=== PATIENT | female | born 1950 | race Caucasian/White ===

== ENCOUNTER → 2017-10-15 | Outpatient (CLI) | payer MEDICARE ==
--- NOTE | 2017-10-18 14:07 | MM ---
Reason for exam: screening (asymptomatic). Last mammogram was performed 1 year and 9 months ago. History: Patient is postmenopausal. Took estrogen for 3 years 7 months. Took progesterone for 3 years 7 months. Physical Findings: A clinical breast exam by your physician is recommended on an annual basis and results should be correlated with mammographic findings. MG 3D Screening Mammo W/Cad Bilateral CC and MLO view(s) were taken. Prior study comparison: January 29, 2016, bilateral MG screening mammo w CAD. December 27, 2014, bilateral MG diagnostic mammo w CAD TONEY. The breast tissue is heterogeneously dense. This may lower the sensitivity of mammography. No significant changes when compared with prior studies. ASSESSMENT: Benign, BI-RAD 2 RECOMMENDATION: Routine screening mammogram of both breasts in 1 year.
== END | disposition home or self-care (01) ==
LOC: RADMAMWWP 09:47
PROVIDERS: ATTEND Family Medicine
DX: Z12.31 Encounter for screening mammogram for malignant neoplasm of breast (principal)
CPT/HCPCS: 77063; 77067

== ENCOUNTER → 2019-06-14 | Outpatient (CLI) | payer MEDICARE ==
--- NOTE | 2019-06-14 15:13 | BD ---
EXAMINATION TYPE: Axial Bone Density DATE OF EXAM: 06/14/2019 COMPARISON: 01/29/2016 CLINICAL HISTORY: M 86.8 Height: 60 inches Weight: 178 FRAX RISK QUESTIONS: Alcohol (3 or more units per day): no Family History (Parent hip fracture): no Glucocorticoids (More than 3mos): no (Ex: prednisone, prednisolone, methylprednisolone, dexamethasone, and hydrocortisone). History of Fracture in Adulthood: no Secondary Osteoporosis: 1. Type 1 Diabetes: no 2. Hyperthyroidism: no 3. Menopause before 45: no 4. Malnutrition: no 5. Chronic liver disease: no Rheumatoid Arthritis: no Current Tobacco Use: yes RISK FACTORS HISTORY OF: Family History of Osteoporosis: yes, grandmother Active: yes Diet low in dairy products/other sources of calcium: no Postmenopausal woman: yes Take estrogen and/or progesterone medications: not now How long: estrogen & progesterone about 3 1/2 years Lost more than 2 inches in height since high school: no Frequent falls: no Poor Health: no Hyperparathyroidism: no Adrenal Insufficiency: no MEDICATIONS: Prednisone or other steroids: no Thyroid Medications: NO Osteoporosis Medications: no Additional Medications: Simvastatin, Metroprolol , allergy meds, & med for migraines, Pro-Air as need ed Additional History: IBS EXAM MEASUREMENTS: Bone mineral densitometry was performed using the Rackwise System. Bone mineral density as measured about the Lumbar spine is: ----- L1-L4(G/cm2): 1.038 T Score Values are as follows: ----- L2: -1.7 ----- L3: -1.3 ----- L4: -0.3 ----- L1-L4: -1.2 Bone mineral density has: Decreased -1.1% since study of: 01/29/2016 Bone mineral density about the R hip (g/cm2): 0.929 Bone mineral density about the L hip (g/cm2): 0.857 T Score values are as follows: -----R Neck: -0.8 -----L Neck: -1.3 -----R Total: 0.0 -----L Total: -0.3 Bone mineral density has: Increased 0.2% since study of: 01/29/2016 IMPRESSION: Osteopenia (T Score between -2.5 and -1). There is slightly increased risk of fracture and the patient may be considered for treatment. Re-Screen 2-5 years. NOTE: T-SCORE=SD OF THE YOUNG ADULT MEAN.
--- NOTE | 2019-06-15 14:12 | MM ---
Reason for exam: screening (asymptomatic). Last mammogram was performed 1 year and 8 months ago. History: Patient is postmenopausal. Took estrogen for 3 years 7 months. Took progesterone for 3 years 7 months. Physical Findings: A clinical breast exam by your physician is recommended on an annual basis and results should be correlated with mammographic findings. MG 3D Screening Mammo W/Cad Bilateral CC and MLO view(s) were taken. Prior study comparison: October 15, 2017, bilateral MG 3d screening mammo w/cad. January 29, 2016, bilateral MG screening mammo w CAD. There are scattered fibroglandular densities. No significant changes when compared with prior studies. ASSESSMENT: Benign, BI-RAD 2 RECOMMENDATION: Routine screening mammogram of both breasts in 1 year.
== END | disposition home or self-care (01) ==
LOC: RADMAMWWP 12:44
PROVIDERS: ATTEND Family Medicine
DX: Z12.31 Encounter for screening mammogram for malignant neoplasm of breast (principal); M85.80 Other specified disorders of bone density and structure, unspecified site
CPT/HCPCS: 77063; 77067; 77080

== ENCOUNTER → 2019-08-25 | Day surgery (SDC) | payer MEDICARE ==
[2019-08-24 12:04] VITALS: BMI 35.9
[~2019-08-25] MED LIST: ALBUTEROL NEB (CONC) 2.5 MG/0.5 ML INHALATION ONE; ALBUTEROL NEBULIZED 2.5 MG/3 ML INHALATION ONE; DEXAMETHASONE SOD PHOS (MDV) 100 MG/10 ML VIAL IVP ONE; GLYCOPYRROLATE 0.2 MG/ML 2 ML VIAL ONE; LACTATED RINGERS 1,000 ML IV ONE; LIDOCAINE 1% INJ 10MG/ML (20 ML MDV) ONE; LIDOCAINE 2% (PF) 20 MG/ML 5 ML VIAL INHALATION ONE; LIDOCAINE VISCOUS 300 MG/15 ML CUP MUCOUS MEM ONE; MIDAZOLAM 2 MG/2 ML VIAL IVP ONE; NEOSTIGMINE 1 MG/ML 10 ML VIAL ONE; ONDANSETRON 4 MG/2 ML VIAL IVP ONE; PROPOFOL 10 MG/ML 20 ML VIAL IV ONE; ROCURONIUM BROMIDE 10 MG/ML 5 ML VIAL IV ONE; SODIUM CHLORIDE 0.9% 1,000 ML IV SCH; SUCCINYLCHOLINE CHLORIDE 100 MG/5 ML SYR IV ONE; ePHEDrine SULFATE/0.9% NACL/PF 50 MG/5 ML SYRINGE IV ONE
[2019-08-25 11:16] VITALS: TEMP 97.7
--- NOTE | 2019-08-25 11:30 | PCN ---
PROCEDURE NOTE PROCEDURE: Bronchoscopy, endobronchial biopsies of endobronchial tumor in the right upper lobe, brushings of the right upper lobe endobronchial tumor, washings of the right upper lobe endobronchial tumor requiring needle aspiration and core biopsy of transcarinal lymph nodes. 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 ANESTHESIA USED: Patient was placed under general anesthesia by STEFANIE. PROCEDURE DESCRIPTION: Patient was prepared according to the bronchoscopy protocol. The patient was intubated by STEFANIE, and placed on mechanical ventilation. We monitored her O2 saturation continuously. Blood pressure was intermittently monitored. Cardiac rhythm was continuously monitored. After adequate anesthesia, the bronchoscope was inserted through the endotracheal tube down to the area of the carlos alberto. The carlos alberto was noted to be prominent and extremely generous. Then as we entered the right upper lobe there was evidence of complete endobronchial obstruction of the anterior segment of the right upper lobe and there was extrinsic compression from below with almost near complete obstruction of the apical and posterior segments of the right upper lobe. The rest of the examination was basically unremarkable. I was able to visualize the right middle lobe and right lower lobe. On the left side, there was no evidence of any significant findings. Then multiple endobronchial biopsies were done of the endobronchial tumor involving the right upper lobe/anterior segment. Multiple biopsies were done. Then, washings and brushings were also done from the same site. Then multiple trans carinal aspirations done at least 2 of them were done of the right anterior carinal and right paratracheal abnormality. Core biopsies were also done from the same site. Procedure was well tolerated. All the specimens were then sent for different diagnostic studies. There was no evidence of any immediate complications. The patient will be transferred to recovery right after this procedure. MMODL / IJN: [id number] /
[2019-08-25 11:38] VITALS: RESP 18
[2019-08-25 12:03] VITALS: BP 148/78; PULSE 89
[2019-08-25 15:26] LABS: Appearance,BF Bloody
[2019-08-25 15:27] LABS: Nucleated Cells, Body Fluid 0 /uL; RBC, Body Fluid 296750 /uL
--- NOTE | 2019-09-06 10:21 | CDI ---
Date: 09.06.19 CDS/Artillery Maintenance Supervisor Name: Radha Rivera Phone: If any questions, call Darlene Griffin Supervisor Power Reactor at [phone] Patient Name: An Julian Admit Date: 08.25.19 Discharge Date: 08.25.19 ATTENTION: The [facility] Coding Staff appreciate your assistance in clarifying documentation. Please respond to the clarification below the line at the bottom and electronically sign. The [facility] Coding staff will review the response and follow-up if needed. Please note: Queries are made part of the Legal Health Record. If you have any questions, please contact the Supervisor Power Reactor. Dear Dr. Benson You state at the beginning under procedure section that you performed core biopsy of transcarinal lymph notes, but the lymph nodes are not mentioned at all in the body of the report or on the path report. Both reports only mention the carnia and the lobes. Were the lymph nodes biopsied? Thank you for your kind consideration. MTDD
--- NOTE | 2019-09-14 14:20 | CGM ---
Date: 09.06.19 CDS/Tax Map Technician Name: Radha Rivera Phone: If any questions, call Darlene Griffin Advertisement Compositor at [phone] Patient Name: An Julian Admit Date: 08.25.19 Discharge Date: 08.25.19 ATTENTION: The [facility] Coding Staff appreciate your assistance in clarifying documentation. Please respond to the clarification below the line at the bottom and electronically sign. The [facility] Coding staff will review the response and follow-up if needed. Please note: Queries are made part of the Legal Health Record. If you have any questions, please contact the Advertisement Compositor. Dear Dr. Benson You state at the beginning under procedure that you performed core biopsy of transcarinal lymph notes, but the lymph nodes are not mentioned at all in the body of the report or on the path report. Both reports only mention the carnia and the lobes. Were the lymph nodes biopsied? Thank you for your kind consideration. MTDD
== END ==
LOC: ORWHC2ENDO 08:15
PROVIDERS: ATTEND Internal Medicine
DX: C34.11 Malignant neoplasm of upper lobe, right bronchus or lung (principal); C34.01 Malignant neoplasm of right main bronchus; I87.1 Compression of vein; J90 Pleural effusion, not elsewhere classified; J44.9 Chronic obstructive pulmonary disease, unspecified; G43.909 Migraine, unspecified, not intractable, without status migrainosus; I10 Essential (primary) hypertension; E78.5 Hyperlipidemia, unspecified; F17.210 Nicotine dependence, cigarettes, uncomplicated; F32.9 Major depressive disorder, single episode, unspecified; E66.9 Obesity, unspecified; Z68.35 Body mass index [BMI] 35.0-35.9, adult; Z88.5 Allergy status to narcotic agent; Z79.51 Long term (current) use of inhaled steroids; Z79.899 Other long term (current) drug therapy; Z91.048 Other nonmedicinal substance allergy status; Z98.890 Other specified postprocedural states; Z90.89 Acquired absence of other organs; Z97.2 Presence of dental prosthetic device (complete) (partial); Z80.51 Family history of malignant neoplasm of kidney; Z82.49 Family history of ischemic heart disease and other diseases of the circulatory system; Z82.5 Family history of asthma and other chronic lower respiratory diseases
CPT/HCPCS: 94640; 88104; 88108; 88305; 88173; 89050; 88342; 88341; 87070; 87205; 31625; 31623; J2250; J2710; J2405; J2001 ×2; J1100; J0330; J2704; 31624; 31628; 31629

== ENCOUNTER → 2019-08-30 | Outpatient (CLI) | payer MEDICARE ==
--- NOTE | 2019-08-30 11:51 | MR ---
EXAMINATION TYPE: MR brain wo/w con DATE OF EXAM: 08/30/2019 COMPARISON: NONE HISTORY: Small cell lung ca, eval for mets TECHNIQUE: Multiplanar, multisequence images of the brain and brainstem is performed without and with IV contras t, utilizing 7.5 mL intravenous Gadavist . FINDINGS: Postcontrast images demonstrate an extra-axial enhancing T2 hypointense and T1 isointense dural based mass. 1.3 x 1.1 x 1.0 cm in transverse by anterior posterior by craniocaudal dimension with a dural tail in the right occipital region. This is marked on postcontrast axial fat sat image 50 and sagitta l image 95. The surrounding sulci are compressed however there is no adjacent vasogenic edema within the brain. Centrally there is absence of enhancement. This does not appear as a large arachnoid granu lation as it is not T2 hyperintense. Diffusion weighted images demonstrate no evidence of a recent infarct or other diffusion abnormality. There is no suspicious extra-axial fluid collection. There are numerous foci of T2/FLAIR hyperinten sity scattered within the periventricular and subcortical white matter with one of the largest and mo st confluent in the periatrial white matter on the left on FLAIR axial fat-sat image 19 measuring 1.1 x 0.8 cm. White matter changes also seen within the oyko. The ventricular system and cisternal spac es are normal in size and appearance. The brain volume is age appropriate. Midline structures demonstrate normal morphology. Incidentally noted partially empty sella turcica. T he craniocervical junction appears within normal limits. The dural venous sinuses appear patent. The globes are intact with prominent symmetric perineural fluid surrounding the optic nerves. Large amount of fluid is seen in the bilateral mastoid air cells and small amount of fluid in the mid dle ear cavities bilaterally. Minimal mucosal thickening of the left maxillary and ethmoid sinuses. R emaining visualized paranasal sinuses are well aerated. IMPRESSION: 1. Findings concerning for 1.3 cm dural based metastasis in the right occipital region with only very minimal mass effect on the adjacent sulci and no intracranial vasogenic edema. 2. Moderate burden nonspecific white matter change, likely on the basis of chronic microangiopathy in cluding within the yoko. Other pontine differential diagnosis is for T2 hyperintensity are less like ly given the lack of enhancement such as low-grade glioma. Attention on follow-up exams. 3. Severe bilateral otomastoiditis. 4. Moderate paranasal sinus disease. 5. Incidentally noted prominent amount of subarachnoid fluid around the optic nerves and a partially into sella turcica that can both be seen in increased intracranial pressure. Correlate with ophthalmo logic exam to exclude papilledema.
== END | disposition home or self-care (01) ==
LOC: RADMRIMAIN 09:55
PROVIDERS: ATTEND Internal Medicine Hematology & Oncology
DX: C79.31 Secondary malignant neoplasm of brain (principal); R90.89 Other abnormal findings on diagnostic imaging of central nervous system; C34.90 Malignant neoplasm of unspecified part of unspecified bronchus or lung
CPT/HCPCS: 70553; A9585

== ENCOUNTER 2019-09-07 12:43 | Emergency (ER) | payer MEDICARE ==
[2019-09-07 12:52] VITALS: TEMP 98.3
--- NOTE | 2019-09-07 13:23 | ED ---
General Adult HPI - General Chief complaint: Recheck/Abnormal Lab/Rx Stated complaint: Hypertension, CA PT Time Seen by Provider: 09/07/19 12:50 Source: patient, RN notes reviewed, old records reviewed Limitations: no limitations - History of Present Illness Initial comments: This is a 69-year-old female presents emergency Department with a past medical history significant for lung cancer and continues to smoke. Patient states she's getting chemotherapy over the last 3 days. Patient states her blood pressure has been elevated and her metoprolol was recently increased from 50-100 a day. Patient states yesterday and today her blood pressure was still very elevated and on her way home she got a little lightheaded and had a little bit of tingling in both of her hands and decided to come and be checked out. Patient currently states she has no symptoms whatsoever. Patient thinks the lightheadedness and tingling was probably more anxiety than anything else. Patient denies any chest pain or palpitations. Patient denies shortness of breath or difficulty breathing. Patient denies any recent fever chills or cough per patient denies abdominal pain patient denies nausea vomiting diarrhea. - Related Data Home Medications Medication Instructions Recorded Confirmed Acetaminophen [Tylenol] 325 - 650 mg PO Q4H PRN 08/24/19 09/07/19 Albuterol Sulfate [Proair Hfa] 2 puff INHALATION Q4HR PRN 08/24/19 09/07/19 Biotin 10,000 mcg PO DAILY 08/24/19 09/07/19 Cholecalciferol [Vitamin D3 (25 3,000 unit PO DAILY 08/24/19 09/07/19 Mcg = 1000 Iu)] Cyanocobalamin (Vitamin B-12) 5,000 mcg PO DAILY 08/24/19 09/07/19 [Vitamin B-12] Fluticasone Propionate [Flonase 2 spray EA NOSTRIL DAILY 08/24/19 09/07/19 Allergy Relief] Fluticasone/Vilanterol [Breo 1 inhalation INHALATION DAILY 08/24/19 09/07/19 Ellipta 200-25 Mcg INH] Ibuprofen [Motrin Ib] 400 mg PO Q8H PRN 08/24/19 09/07/19 Lactobacillus Acidophilus 1 each PO DAILY 08/24/19 09/07/19 [Acidophilus] Loperamide [Imodium] 2 mg PO QID PRN 08/24/19 09/07/19 Loratadine [Claritin] 10 mg PO DAILY 08/24/19 09/07/19 Metoprolol Succinate (ER) [Toprol 50 mg PO DAILY 08/24/19 09/07/19 Xl] SUMAtriptan SUCCINATE [Imitrex] 50 mg PO ONCE PRN 08/24/19 09/07/19 Simvastatin [Zocor] 20 mg PO HS 08/24/19 09/07/19 Topiramate [Topamax] 100 mg PO DAILY 08/24/19 09/07/19 Ondansetron HCl [Zofran] 1 tab PO DIRECTED PRN 09/05/19 09/07/19 Prochlorperazine [Compazine] 1 tab PO DIRECTED PRN 09/05/19 09/07/19 predniSONE 1 tab PO DIRECTED 09/05/19 09/07/19 tiZANidine [Zanaflex] 1 tab PO TID 09/05/19 09/07/19 Allergies Allergy/AdvReac Type Severity Reaction Status Date / Time meperidine [From Demerol] Allergy Severe Nausea & Verified 09/07/19 12:52 Vomiting codeine Allergy Nausea & Verified 09/07/19 12:52 Vomiting nickel Allergy Rash/Hives Verified 09/07/19 12:52 Review of Systems ROS Statement: Those systems with pertinent positive or pertinent negative responses have been documented in the HPI. ROS Other: All systems not noted in ROS Statement are negative. Past Medical History Past Medical History: COPD, Hearing Disorder / Deafness, Hyperlipidemia, Hypertension Additional Past Medical History / Comment(s): Sl RAMONA. Migraines, vertigo. RUL lung mass, Pleural Effusion, cervical lymph nodes enlarged, shortness of breath, edema face/chest/breasts. Muscle cramps BLE, fingers. History of Any Multi-Drug Resistant Organisms: None Reported Past Surgical History: Tonsillectomy Additional Past Surgical History / Comment(s): D&C. Colonoscopy. Lung Biopsy Past Anesthesia/Blood Transfusion Reactions: Family History of Problems w/ Anesthesia Additional Past Anesthesia/Blood Transfusion Reaction / Comment(s): Reaction to Demerol given with colonoscopy. Mother has problems Smoking Status: Current every day smoker Past Alcohol Use History: None Reported Past Drug Use History: None Reported - Past Family History Mother Family Medical History: Cancer, Deep Vein Thrombosis (DVT) Additional Family Medical History / Comment(s): kidney cancer General Exam - General Exam Comments Initial Comments: GENERAL: Patient is well-developed and well-nourished. Patient is nontoxic and well-hydrated and is in no acute distress. ENT: Neck is soft and supple. No significant lymphadenopathy is noted. Oropharynx is clear. Moist mucous membranes. Neck has full range of motion without eliciting any pain. EYES: The sclera were anicteric and conjunctiva were pink and moist. Extraocular movements were intact and pupils were equal round and reactive to light. Eyelids were unremarkable. PULMONARY: Unlabored respirations. Good breath sounds bilaterally. No audible rales rhonchi or wheezing was noted. CARDIOVASCULAR: There is a regular rate and rhythm without any murmurs gallops or rubs. ABDOMEN: Soft and nontender with normal bowel sounds. SKIN: Skin is clear with no lesions or rashes and otherwise unremarkable. NEUROLOGIC: Patient is alert and oriented x3. Cranial nerves II through XII are grossly intact. Motor and sensory are also intact. Normal speech, volume and content. Symmetrical smile. MUSCULOSKELETAL: Normal extremities with adequate strength and full range of motion. No lower extremity swelling or edema. No calf tenderness. LYMPHATICS: No significant lymphadenopathy is noted PSYCHIATRIC: Normal psychiatric evaluation. Limitations: no limitations Course Vital Signs 09/07/19 09/07/19 12:50 13:06 Temperature 98.3 F Pulse Rate 88 88 Respiratory 18 18 Rate Blood Pressure 148/86 141/98 O2 Sat by Pulse 95 94 L Oximetry Medical Decision Making - Medical Decision Making EKG shows sinus rhythm at 86 bpm VT interval 208 QRS is 74 QT interval 354 QTC is 423. Patient's EKG shows no ST segment elevation or depression. I will begin the room to reexamine the patient she continue to be asymptomatic. - Lab Data Result diagrams: 09/07/19 13:30 09/07/19 13:30 Lab Results 09/07/19 09/07/19 09/07/19 Range/Units 13:30 13:30 13:30 WBC 6.2 (3.8-10.6) k/uL RBC 4.47 (3.80-5.40) m/uL Hgb 13.2 (11.4-16.0) gm/dL Hct 42.0 (34.0-46.0) % MCV 94.1 (80.0-100.0) fL MCH 29.5 (25.0-35.0) pg MCHC 31.4 (31.0-37.0) g/dL RDW 13.0 (11.5-15.5) % Plt Count 186 (150-450) k/uL Neutrophils % 96 % Lymphocytes % 2 % Monocytes % 2 % Eosinophils % 1 % Basophils % 0 % Neutrophils # 6.0 (1.3-7.7) k/uL Lymphocytes # 0.1 L (1.0-4.8) k/uL Monocytes # 0.1 (0-1.0) k/uL Eosinophils # 0.0 (0-0.7) k/uL Basophils # 0.0 (0-0.2) k/uL Sodium 136 L (137-145) mmol/L Potassium 4.0 (3.5-5.1) mmol/L Chloride 105 (98-107) mmol/L Carbon Dioxide 23 (22-30) mmol/L Anion Gap 8 mmol/L BUN 17 (7-17) mg/dL Creatinine 0.57 (0.52-1.04) mg/dL Est GFR (CKD-EPI)AfAm >90 (>60 ml/min/1.73 sqM) Est GFR (CKD-EPI)NonAf >90 (>60 ml/min/1.73 sqM) Glucose 164 H (74-99) mg/dL Calcium 8.8 (8.4-10.2) mg/dL Total Bilirubin 0.5 (0.2-1.3) mg/dL AST 46 H (14-36) U/L ALT 22 (4-34) U/L Alkaline Phosphatase 64 (38-126) U/L Troponin I <0.012 (0.000-0.034) ng/mL Total Protein 6.5 (6.3-8.2) g/dL Albumin 4.0 (3.5-5.0) g/dL Disposition Clinical Impression: Hypertensive urgency Disposition: HOME SELF-CARE Condition: Good Instructions (If sedation given, give patient instructions): Chronic Hypertension (ED) Additional Instructions: Patient should monitor her blood pressure before every meal and before bed. Patient should document this and show her primary medical care doctor. Patient should contact her primary doctor either today or tomorrow and see if he would advise her to increase her blood pressure medication or take a dose at night Patient should return to emergency department if she has having any new symptoms or any worsening symptoms. Is patient prescribed a controlled substance at d/c from ED?: No Referrals: Leia Marquez MD [Primary Care Provider] - 1-2 days Time of Disposition: 14:32
[2019-09-07 13:41] LABS: Basophils % (A) 0 %; Eosinophils % (A) 1 %; HGB 13.2 gm/dL (11.4-16.0); Lymphocytes # (A) 0.1 k/uL (1.0-4.8); Lymphocytes % (A) 2 %; MCH 29.5 pg (25.0-35.0); MCHC 31.4 g/dL (31.0-37.0); MCV 94.1 fL (80.0-100.0); Mean Platelet Volume 7.4; Monocytes # (A) 0.1 k/uL (0-1.0); Monocytes % (A) 2 %; Neutrophils % (A) 96 %; Platelet Count 186 k/uL (150-450); RBC 4.47 m/uL (3.80-5.40); WBC 6.2 k/uL (3.8-10.6)
[2019-09-07 13:52] LABS: ALT 22 U/L (4-34); AST 46 U/L (14-36); African American GFR (CKD) >90 (>60 ml/min/1.73 sqM); Alkaline Phosphatase 64 U/L (38-126); Anion Gap 8 mmol/L; Blood Urea Nitrogen 17 mg/dL (7-17); Calcium 8.8 mg/dL (8.4-10.2); Carbon Dioxide 23 mmol/L (22-30); Chloride 105 mmol/L (98-107); Glucose 164 mg/dL (74-99); Non-African American GFR(CKD) >90 (>60 ml/min/1.73 sqM); Sodium 136 mmol/L (137-145); Total Bilirubin 0.5 mg/dL (0.2-1.3); Total Protein 6.5 g/dL (6.3-8.2)
[2019-09-07 14:42] VITALS: BP 142/87; PULSE 18; RESP 16
== END 2019-09-07 14:45 | disposition home or self-care (01) ==
LOC: EC 12:43
DX: I16.0 Hypertensive urgency (principal); C34.90 Malignant neoplasm of unspecified part of unspecified bronchus or lung; J44.9 Chronic obstructive pulmonary disease, unspecified; E78.5 Hyperlipidemia, unspecified; I10 Essential (primary) hypertension; F17.200 Nicotine dependence, unspecified, uncomplicated; Z79.51 Long term (current) use of inhaled steroids; Z79.899 Other long term (current) drug therapy; Z88.5 Allergy status to narcotic agent; Z88.8 Allergy status to other drugs, medicaments and biological substances
CPT/HCPCS: 99284 ×2; 36415; 93005; 80053; 84484; 85025; 96367; 96375; 96413; J1100; J9181; J2405

== ENCOUNTER → 2019-09-13 | Outpatient (CLI) | payer MEDICARE ==
[2019-09-13 11:34] LABS: Partial Thromboplastin Time 22.1 sec (22.0-30.0)
[2019-09-13 11:39] LABS: Basophils % (A) 1 %; Eosinophils % (A) 2 %; HCT 39.5 % (34.0-46.0); HGB 12.8 gm/dL (11.4-16.0); Lymphocytes # (A) 0.2 k/uL (1.0-4.8); Lymphocytes % (A) 7 %; MCH 30.3 pg (25.0-35.0); MCHC 32.4 g/dL (31.0-37.0); MCV 93.6 fL (80.0-100.0); Mean Platelet Volume 7.9; Monocytes # (A) 0.1 k/uL (0-1.0); Monocytes % (A) 4 %; Neutrophils # (A) 2.1 k/uL (1.3-7.7); Neutrophils % (A) 87 %; Platelet Count 106 k/uL (150-450); RBC 4.22 m/uL (3.80-5.40); RDW 12.9 % (11.5-15.5); WBC 2.5 k/uL (3.8-10.6)
== END | disposition home or self-care (01) ==
LOC: LABWHC1 10:15
PROVIDERS: ATTEND Radiology Radiation Oncology
DX: U07.1 COVID-19 (principal); C34.11 Malignant neoplasm of upper lobe, right bronchus or lung; C77.1 Secondary and unspecified malignant neoplasm of intrathoracic lymph nodes
CPT/HCPCS: 36415; 85025; 85610; 85730; 87635

== ENCOUNTER 2019-09-15 09:20 | Day surgery (SDC) | payer MEDICARE ==
[2019-09-15 10:26] VITALS: BP 134/88; PULSE 82; RESP 18; TEMP 97.8
--- NOTE | 2019-09-15 11:05 | US ---
Ultrasound-guided therapeutic and diagnostic thoracentesis DATE OF EXAM: 09/15/2019 CLINICAL HISTORY: Right pleural effusion Preliminary imaging demonstrated marked reduced amount of pleural fluid relative to the previous CT s can. Patient deferred paracentesis. IMPRESSION: 1. Patient deferred thoracentesis due to small amount of fluid which appear to be significantly impro andriy relative to the prior CT scan.
== END 2019-09-15 10:50 | disposition home or self-care (01) ==
LOC: RADPROMAIN 09:20
PROVIDERS: ATTEND Radiology Radiation Oncology
DX: J91.8 Pleural effusion in other conditions classified elsewhere (principal); C34.11 Malignant neoplasm of upper lobe, right bronchus or lung; C77.1 Secondary and unspecified malignant neoplasm of intrathoracic lymph nodes; Z53.8 Procedure and treatment not carried out for other reasons
CPT/HCPCS: 76604

== ENCOUNTER → 2019-10-26 | Outpatient (CLI) | payer MEDICARE ==
[2019-10-26 10:13] LABS: African American GFR (CKD) >90 (>60 ml/min/1.73 sqM); Blood Urea Nitrogen 17 mg/dL (7-17); Non-African American GFR(CKD) 88 (>60 ml/min/1.73 sqM)
--- NOTE | 2019-10-26 11:27 | CT ---
EXAMINATION TYPE: CT chest w con DATE OF EXAM: 10/26/2019 COMPARISON: 07/12/2019 HISTORY: 69-year-old female Follow up lung cancer. TECHNIQUE: Contiguous axial scanning of the chest after the administration of 100 mL of Isovue 300. Coronal/sagittal reconstructions performed. CT DLP: 334.6mGycm. Automatic exposure control utilized for a dose reduction. FINDINGS: Heart normal size with small anterior pericardial effusion measuring 5 mm thick. Ascending aorta is borderline ectatic at 3.5 cm. Descending thoracic aorta mildly ectatic at 2.8 cm. Mild atherosclerotic arch calcifications with conventional arthrosis of branching anatomy. Significant interval treatment response to the large 6.5 x 6.2 cm right peritracheal mass now with re sidual 2.3 x 1.8 cm soft tissue density. Mild residual soft tissue encasement of the right hilum, als o significantly improved. 9 mm right-sided infrahilar lymph node remains unchanged, axial image 29. Prevascular space and additional superior right mediastinal lymph nodes have resolved. Strandy atelectasis in the lower lungs. Mild diffuse bronchial wall thickening suggests bronchitis or chronic asthma. Mild upper lung centrilobular seem a period Moderate-sized right-sided fat-containing Bochdalek hernia redemonstrated. Multiple hepatic cysts redemonstrated measuring up to 4.7 cm. Many of the hypodensities are too small for accurate CT characterization but also likely represent cysts. Bones: Moderate degenerative disc disease mid thoracic spine. IMPRESSION: 1. Significant interval treatment response. The previous 6.5 cm right paratracheal mass shows only re sidual 2.3 x 1.8 cm soft tissue. There is mild residual soft tissue encasement of the right hilum, al so significantly improved. 2. A 9 mm right-sided infrahilar lymph node remains unchanged and can be reassessed at follow-up. 3. COPD with mild emphysema.
== END | disposition home or self-care (01) ==
LOC: RADCTMAIN 09:43
PROVIDERS: ATTEND Internal Medicine Hematology & Oncology
DX: J43.9 Emphysema, unspecified (principal); C34.91 Malignant neoplasm of unspecified part of right bronchus or lung; R59.0 Localized enlarged lymph nodes; Z88.5 Allergy status to narcotic agent; Z88.6 Allergy status to analgesic agent; Z91.048 Other nonmedicinal substance allergy status
CPT/HCPCS: 82565; 84520; 71260; Q9967

== ENCOUNTER → 2019-12-05 | Outpatient (CLI) | payer MEDICARE ==
--- NOTE | 2019-12-05 16:17 | MR ---
EXAMINATION TYPE: MR brain wo/w con DATE OF EXAM: 12/05/2019 COMPARISON: MRI brain 08/30/2019 HISTORY: Malignant neoplasm right upper lobe, secondary neoplasm lymph nodes TECHNIQUE: Multiplanar, multisequence images of the brain and brainstem is performed without and with IV contras t, utilizing 7.5 mL intravenous Gadavist . FINDINGS: There is a redemonstrated right occipital region extra-axial dural based mass measuring 1.3 x 1.1 x 1 .1 cm. The masses is again T1 isointense, T2 hypointense, nonrestricting, and peripherally enhancing (601:50). There is redemonstrated small dural tail. Mild mass effect on the adjacent sulci unchanged. No evidence of significant adjacent edema. Diffusion weighted images demonstrate no evidence of a recent infarct or other diffusion abnormality. There is no extra-axial fluid collection. There are redemonstrated innumerable T2 FLAIR hyperintense foci of the deep, subcortical, and periventricular white matter without enhancement. The largest foc us measures 1.2 cm (501:41), unchanged. The ventricular system and cisternal spaces are normal in siz e and appearance. The brain volume is age appropriate. Midline structures demonstrate normal morphology. Redemonstrated empty sella. The craniocervical junc tion appears within normal limits. The dural venous sinuses appear patent. There is redemonstrated fl uid within the bilateral mastoid air cells and middle ear cavities. The globes are grossly symmetric with no evidence of bulging or flattening of the optic nerve head, and decreased fluid signal around the optic nerves versus 08/30/2019 comparison. IMPRESSION: 1. Unchanged 1.3 cm dural based mass in the right occipital region, likely dural based metastasis. M ild mass effect and no associated intracranial edema. No new masses. 2. Unchanged nonenhancing, nonspecific white matter change may represent sequela of chronic microang iopathy. Attention on follow-up exams. 3. Redemonstrated bilateral otomastoiditis.
== END | disposition home or self-care (01) ==
LOC: RADMRIMAIN 10:18
PROVIDERS: ATTEND Radiology Radiation Oncology
DX: C34.11 Malignant neoplasm of upper lobe, right bronchus or lung (principal); C77.1 Secondary and unspecified malignant neoplasm of intrathoracic lymph nodes; R22.0 Localized swelling, mass and lump, head
CPT/HCPCS: 70553; A9585

== ENCOUNTER → 2020-01-31 | Outpatient (CLI) | payer MEDICARE ==
--- NOTE | 2020-02-01 10:01 | CT ---
EXAMINATION TYPE: CT chest w con DATE OF EXAM: 01/31/2020 COMPARISON: 10/26/2019 HISTORY: Lung ca, metastatic brain. CT DLP: 347.90 mGycm, Automated exposure control for dose reduction was used. CONTRAST: Performed injected with 100 mL of Isovue 300. TECHNIQUE: Axial images were obtained at 5 mm thick sections. Reconstructed images are reviewed on [employer] computer in the coronal plane. FINDINGS: Portion of the thyroid visualized is normal. There is diffuse increased lung markings at the right apex which are nonspecific. Postradiation diaz es could be considered. Infiltrate from infection could be considered. Metastatic disease is consider ed less likely given the diffuse nature but should be within the differential. There is a punctate nodule within the periphery of the lateral right apex measuring 0.3 cm. This have been present previously. There is a small infiltrate in the superior segment right lower lobe with a transverse dimension of 0 .5 cm. Series 4 image 17. Mild pneumonitis changes in the right middle lobe. There is a small right pleural effusion. A 1.1 cm transverse dimension pretracheal lymph node at the level the carlos alberto is again evident and malik ears slightly smaller than comparison. Length along the peribronchial region currently measures 2.1 c m which is diminished from the 2.3 cm previous. Small lymph nodes are present in the pretracheal and right hilar region. There is a 0.9 cm subcarinal lymph node present. The ascending aorta diameter at the level of the main pulmonary artery is 3.6 cm. The main pulmonary artery diameter at the bifurcat ion is 2.4 cm. Minimal pericardial effusion is present. Limited CT sections are obtained through the upper abdomen. There is a 2.5 cm cyst measuring 5 Hounsf ield units in the posterior right lobe liver. There is a large cyst near the ligamentum teres measuri ng 9 Hounsfield units and 4.0 cm. Additional small hypodensities are within the liver appear suggesti ve for additional cysts. A discrete mass is not identified. IMPRESSIONS: 1. Diffuse increased lung markings at the right apex. Correlate for prior radiation treatment. Infect ious etiology and infiltrative metastasis could be considered. 2. Pretracheal lymph node or mass is somewhat smaller than the comparison study of 10/26/2019. No porfirio tional enlarged mediastinal or hilar lymph nodes are evident.
== END | disposition home or self-care (01) ==
LOC: RADCTMAIN 14:51
PROVIDERS: ATTEND Internal Medicine Hematology & Oncology
DX: C34.91 Malignant neoplasm of unspecified part of right bronchus or lung (principal); C79.31 Secondary malignant neoplasm of brain; Z88.5 Allergy status to narcotic agent; Z91.048 Other nonmedicinal substance allergy status
CPT/HCPCS: 71260; Q9967

== ENCOUNTER → 2020-03-20 | Outpatient (CLI) | payer MEDICARE ==
--- NOTE | 2020-03-20 14:59 | MR ---
EXAMINATION TYPE: MR brain wo/w con DATE OF EXAM: 03/20/2020 2:34 PM COMPARISON: NONE HISTORY: F/U Cancer CONTRAST: Patient received 7.5 mL intravenous Gadavist gadolinium contrast. Multiplanar and multispin-echo imaging of the brain was performed . Pre and post contrast enhanced i mages are obtained. The ventricles, basal cisterns and sulci overlying the cerebral convexities are mildly enlarged. There is evidence of mild to moderate periventricular white matter ischemic demyelination. Remote deep white matter insults are also noted. Demyelination is difficult to exclude No acute edema is seen on diffusion weighted imaging. There is no evidence for midline shift or mass effect. Acute intracranial hemorrhage or extra-axial collection is not evident. Extra-axial mass is again noted right occipital region and appears to be slightly smaller in size wit h current measurement of 1.1 x 0.8 cm versus 1.3 x 1.1 cm previously. No additional lesions are prese nt at this time. Complete opacification of the mastoid air cells. IMPRESSION: 1.Extra-axial mass is again noted right occipital region and appears to be slightly smaller in size w ith current measurement of 1.1 x 0.8 cm versus 1.3 x 1.1 cm previously. No additional lesions are pre sent at this time. 2. Stable nonspecific white matter changes.
== END | disposition home or self-care (01) ==
LOC: RADMRIMAIN 13:07
PROVIDERS: ATTEND Radiology Radiation Oncology
DX: R90.82 White matter disease, unspecified (principal); C79.31 Secondary malignant neoplasm of brain
CPT/HCPCS: 70553; A9585

== ENCOUNTER → 2020-05-06 | Outpatient (CLI) | payer MEDICARE ==
[2020-05-06 09:12] LABS: African American GFR (CKD) >90 (>60 ml/min/1.73 sqM); Blood Urea Nitrogen 15 mg/dL (7-17); Non-African American GFR(CKD) >90 (>60 ml/min/1.73 sqM)
--- NOTE | 2020-05-06 11:36 | CT ---
EXAMINATION TYPE: CT chest w con DATE OF EXAM: 05/06/2020 COMPARISON: 01/31/2020, 10/26/2019, 07/12/2019 HISTORY: 70-year-old female C34.91, Z03.89, Lung cancer, suspect METS TECHNIQUE: Contiguous axial scanning of the chest after the administration of 100 mL of Isovue 300. Coronal/sagittal reconstructions performed. CT DLP: 268.2mGycm. Automatic exposure control utilized for a dose reduction. FINDINGS: Heart normal size with small anterior pericardial effusion measuring 5 mm thick, similar to prior. Ectatic aortic root at 3.7 cm. Mild atherosclerotic arch calcifications with conventional arch vessel branching anatomy. Stable precarinal and right hilar mild soft tissue encasement. The precarinal region, this measures u p to 9 mm thick processes 1 cm, previously. Right hilar lymph node measures 1 cm versus 1.2 cm on 01/09. Trace right pleural effusion remains. There is stable groundglass opacity in the right apex but increasing areas of patchy groundglass dens ity in the right suprahilar upper lobe and subpleural peripheral right upper lobe. Some subpleural fatty proliferation posterior medial right base is unchanged measuring 6.8 x 3.8 cm. Numerous hepatic cysts, largest measuring 4.7 cm. Mild diffuse thickening left adrenal gland is uncha nged without discrete nodularity. Bones: Moderate degenerative disc disease midthoracic spine. IMPRESSION: 1. Stable mild precarinal and right hilar soft tissue encasement corresponding to site of treated dis ease. Precarinal soft tissue thickening measures 9 mm versus 1 cm, previously. 2. Continued trace right pleural effusion and right apical groundglass density. However, there is inc reasing multifocal groundglass within the right upper lobe. Consider progressive posttreatment change or infectious/inflammatory pneumonitis. 3. Stable 5 mm thick pericardial effusion. 4. Otherwise, no convincing evidence of progression at this time.
== END | disposition home or self-care (01) ==
LOC: RADCTMAIN 08:17
PROVIDERS: ATTEND Internal Medicine Hematology & Oncology
DX: M79.89 Other specified soft tissue disorders (principal); J98.4 Other disorders of lung; I31.3 Pericardial effusion (noninflammatory); C34.91 Malignant neoplasm of unspecified part of right bronchus or lung; Z88.5 Allergy status to narcotic agent; Z91.048 Other nonmedicinal substance allergy status
CPT/HCPCS: 82565; 84520; 71260; 36415; Q9967

== ENCOUNTER → 2020-08-09 | Outpatient (CLI) | payer MEDICARE ==
--- NOTE | 2020-08-09 18:07 | CT ---
EXAMINATION TYPE: CT ChestAbdPelvis w con DATE OF EXAM: 08/09/2020 INDICATION: follow up lung cancer COMPARISON: 05/06/2020 CT DLP: 682.4 mGycm CONTRAST: Performed with Oral Contrast and with IV Contrast, patient injected with 100 mL of Isovue 300. TECHNIQUE: Axial images at 5 mm thick sections. Reconstructed images in the coronal plane. Delayed images through the kidneys. FINDINGS: CT CHEST: Portion of the thyroid visualized is normal. There is increased density and some distortion through the right apex which is stable from comparison . There is some increasing superior lung areas of pneumonitis which are nonspecific and can be related to metastasis or infectious etiologies. Example image series 4 image 21 and series 4 image 18. No enlarged mediastinal or hilar adenopathy is evident. The ascending aorta diameter at the level of the main pulmonary artery is 3.7 cm. The main pulmonary artery diameter at the bifurcation is 2.[address] ABDOMEN: Liver: Multiple scattered hypodensities are present likely on the basis of hepatic cysts. Spleen: Normal Pancreas: Normal Adrenal glands: The adrenal glands are normal. Gallbladder: Normal Kidneys: No masses are evident. No hydronephrosis is present. No cysts are present. Delayed images were obtained through the kidneys, couple of small cortical renal cysts are identified on the right kidney and delayed images. Aorta: Vascular calcification is within the aorta. Inferior vena cava: Normal. CT PELVIS: Multiple scattered diverticuli within the sigmoid colon. No suspicious changes to suggest acute diver ticulitis is evident. Some small bowel loops are slightly prominent within the left upper quadrant. N o transition is evident. No mass effect is evident. Fecal debris is within the colon. There are loops of bowel which are incompletely distended or lack oral contrast limiting their evaluation. Appendix: Normal as visualized. Urinary bladder: Normal. Genitourinary structures: Uterus is unremarkable. Adnexal regions appear within normal limits. Osseous structures: No suspicious lytic or sclerotic lesions. IMPRESSIONS: 1. Diffuse distortion increased density within the right upper lobe can be compatible with patient's lung cancer. Some patchy infiltrates are increasing in size 2. Hepatic cysts
== END | disposition home or self-care (01) ==
LOC: RADCTMAIN 11:25
PROVIDERS: ATTEND Internal Medicine Hematology & Oncology
DX: C34.91 Malignant neoplasm of unspecified part of right bronchus or lung (principal); C79.31 Secondary malignant neoplasm of brain; R91.8 Other nonspecific abnormal finding of lung field; K76.89 Other specified diseases of liver; Z88.5 Allergy status to narcotic agent; Z91.048 Other nonmedicinal substance allergy status
CPT/HCPCS: 82565; 84520; 71260; 74177; Q9967

== ENCOUNTER → 2020-08-14 | Outpatient (CLI) | payer MEDICARE ==
--- NOTE | 2020-08-14 13:45 | MR ---
EXAMINATION TYPE: MR brain wo/w con DATE OF EXAM: 08/14/2020 12:13 PM COMPARISON: 03/20/2020 HISTORY: F/U cancer CONTRAST: Patient received 7 mL intravenous Gadavist gadolinium contrast. Multiplanar and multispin-echo imaging of the brain was performed . Pre and post contrast enhanced i mages are obtained. The ventricles, basal cisterns and sulci overlying the cerebral convexities are mildly enlarged. There is evidence of mild periventricular white matter ischemic demyelination. Remote deep white matter insults are also noted. New lesions are noted in the interval with dominant lesion within the infratentorial right cerebellum measuring 1.7 cm. Additional new lesions are noted with small ring-enhancing lesions within the left basal ganglia measuring 6 mm, left occipital region 4.4 mm, right centrum semioval anteriorly, 5.3 m m high left parietal occipital region, 4.8 mm high right parasagittal frontal lobe 5.4 mm. Dural base d lesion right occipital region measures 7.7 mm and has decreased in size from prior measurement of 1 1 mm. No evidence for intracranial hemorrhage. No midline shift. Complete opacification of mastoid air cells bilaterally. Mild chronic paranasal sinusitis. IMPRESSION: 1. Multiple new lesions seen compatible with metastatic disease. Priestly noted the right occipital d ural based lesion persists although is smaller in size.
== END | disposition home or self-care (01) ==
LOC: RADMRIMAIN 11:11
PROVIDERS: ATTEND Internal Medicine Hematology & Oncology
DX: G93.89 Other specified disorders of brain (principal)
CPT/HCPCS: 70553; A9585

== ENCOUNTER → 2020-10-22 | Outpatient (CLI) | payer MEDICARE ==
--- NOTE | 2020-10-22 20:15 | MR ---
EXAMINATION TYPE: MR brain wo/w con DATE OF EXAM: 10/22/2020 COMPARISON: Prior MRI brain August 14, 2020 and older studies. HISTORY: C79.31 secondary malignant neoplasm of brain Follow up study. Patient does have new hearing loss bilateral. TECHNIQUE: Multiplanar, multisequence images of the brain and brainstem is performed without and with IV contras t, utilizing 7 mL intravenous Gadavist . FINDINGS: Diffusion weighted images demonstrate no evidence of a recent infarct or other diffusion ab normality. There is mild ventricular and sulcal prominence redemonstrated. Persistent [id number]-[id number] jonas multifocal areas of T2 hyperintensity seen throughout the superficial, deep, and periventricular white matter. Persistent and worsening fluid in the bilateral mastoid air cells. Midline structures redemonstrate empty sella morphology. The craniocervical junction appears within normal limits. The dural venous sinuses remaining patent. The visualized sinuses are clear and the gl obes are intact. Prominent CSF surrounding optic nerve sheaths bilaterally is stable. Improved 1.7 cm enhancing mass right cerebellar hemisphere prior study axial image 21 now heterogeneo us punctate enhancement axial image 23. No surrounding vasogenic edema on current study. The rim-enha ncing 6 mm lesion left basal ganglia prior study axial image 43 not clearly seen on current study. Ri m-enhancing 5 mm right frontal subcortical lesion prior study image 52 not clearly seen on current st udy. Stable right occipital rim-enhancing right occipital lesion or area axial image and prior studie s. No new enhancing lesions are evident. IMPRESSION: Dural based 1.0 cm right occipital lesion grossly stable. Other lesions show significant positive treatment response assuming patient currently undergoing active treatment for most recent MR I.
== END | disposition home or self-care (01) ==
LOC: RADMRIMAIN 13:07
PROVIDERS: ATTEND Radiology Radiation Oncology
DX: G93.9 Disorder of brain, unspecified (principal); C79.31 Secondary malignant neoplasm of brain
CPT/HCPCS: 70553; A9585

== ENCOUNTER → 2020-10-23 | Outpatient (CLI) | payer MEDICARE ==
[2020-10-23 09:58] LABS: African American GFR (CKD) >90 (>60 ml/min/1.73 sqM); Blood Urea Nitrogen 9 mg/dL (7-17); Non-African American GFR(CKD) >90 (>60 ml/min/1.73 sqM)
--- NOTE | 2020-10-23 11:35 | CT ---
EXAMINATION TYPE: CT ChestAbdPelvis w con DATE OF EXAM: 10/23/2020 COMPARISON: Prior CT August 09, 2020 and older outside studies. HISTORY: Lung CA right sided originally diagnosed in July 2019 CT DLP: 632.1 mGycm. Automated Exposure Control for Dose Reduction was Utilized. CONTRAST: CT scan of the thorax, abdomen and pelvis is performed with oral and with IV Contrast, patient inject ed with 100 mL of Isovue 300. FINDINGS: LUNGS: Persistent right upper lung reticulation and groundglass opacity with inferior less prominent extension. There is tiny right-sided pleural fluid collection. New areas of nodularity and/or nodular consolidation are suspicious for reference to lesions on axial image 17, largest anteriorly measures 7 mm. Left lung is clear. Right-sided volume loss is redemonstrated. Right hilar soft tissue fairly stable. Stable posterior right lung base diaphragmatic hernia containing fat incidentally noted sagit xavi image 37. MEDIASTINUM: There is enlarging right paratracheal mass or lymph node measuring 2.5 x 2.0 cm axial im age 19 increased from 1.3 by 0.9 cm prior study. This encroaches along the posterior margin of the SV C which is slightly flattened and extends to the pericarinal level. Craniocaudal length 2.3 cm cesar l image 41. No definitive recurrence supraclavicular adenopathy. Favor focal stable fluid subcarina l level axial image 27 versus low dense lymph node. No cardiomegaly or pericardial effusion is seen. LIVER/GB: There are multiple hypodense lesions are thin-walled cysts scattered throughout the liver b ut there are multiple new heterogeneous slightly hypodense lesions consistent with metastatic disease . For reference there is 3.3 cm lesion long axis anterior superior lateral segment left hepatic lobe image 46. For reference there is 2.9 cm lesion left hepatic lobe lateral segment axial image 58 sligh tly bulging anterior contour to liver. PANCREAS: No significant abnormality is seen. SPLEEN: No significant abnormality is seen. ADRENALS: No significant abnormality is seen. KIDNEYS: No significant abnormality is seen. BOWEL: Oral contrast does not reach level of the terminal ileum making evaluation of distal bowel sli ghtly suboptimal. There is no suspicious small or large bowel dilatation. Scattered colonic diverticu la with prominent diverticulosis in the left and sigmoid colon. GENITAL ORGANS: Roughly 1.8 cm anterior prominence from the uterine fundus likely reflect subserosal fibroid. Prominent draining left ovarian veins are redemonstrated. LYMPH NODES: No greater than 1cm abdominal or pelvic lymph nodes are appreciated. OSSEOUS STRUCTURES: Slight grade 1 anterolisthesis L4 on L5. Underlying scoliosis of the thoracic spi ne redemonstrated. OTHER: Mild to moderate calcified plaque of the aorta extends into branch vessels. IMPRESSION: Interval neoplastic progression. New hepatic metastatic disease. Recurrent right paratrac heal adenopathy. Posttreatment change suspected right upper lung with new areas of subcentimeter nodu larity that are concerning.
== END | disposition home or self-care (01) ==
LOC: RADCTMAIN 09:10
PROVIDERS: ATTEND Internal Medicine Hematology & Oncology
DX: C34.91 Malignant neoplasm of unspecified part of right bronchus or lung (principal); C78.7 Secondary malignant neoplasm of liver and intrahepatic bile duct
CPT/HCPCS: 82565; 84520; 71260; 74177; 36415; Q9967

== ENCOUNTER → 2020-10-30 | Outpatient (CLI) | payer MEDICARE ==
--- NOTE | 2020-10-30 18:00 | XR ---
EXAMINATION TYPE: XR pelvis AP view DATE OF EXAM: 10/30/2020 COMPARISON: NONE HISTORY: Hip pain TECHNIQUE: Single view FINDINGS: The pelvic ring is intact. Sacroiliac joints are intact. I see no definite fracture. There are apparent sigmoid diverticula. IMPRESSION: No acute abnormality the pelvis. No fracture seen.
--- NOTE | 2020-10-30 18:02 | XR ---
EXAMINATION TYPE: XR femur LT DATE OF EXAM: 10/30/2020 COMPARISON: NONE HISTORY: Hip pain TECHNIQUE: 4 views FINDINGS: I see no fracture nor dislocation. Hip joint and knee joint appear intact. Acetabulum is in tact. There is no sign of knee joint effusion. IMPRESSION: Negative left femur exam. No fracture seen.
== END | disposition home or self-care (01) ==
LOC: RADXRMAIN 16:50
PROVIDERS: ATTEND Internal Medicine Hematology & Oncology
DX: C34.91 Malignant neoplasm of unspecified part of right bronchus or lung (principal); C79.31 Secondary malignant neoplasm of brain; K58.0 Irritable bowel syndrome with diarrhea; R19.7 Diarrhea, unspecified
CPT/HCPCS: 72170

== ENCOUNTER → 2020-12-14 | Outpatient (CLI) | payer MEDICARE ==
--- NOTE | 2020-12-14 11:51 | XR ---
EXAMINATION TYPE: XR Hip LT and AP Pelvis DATE OF EXAM: 12/14/2020 COMPARISON: None HISTORY: Left hip pain TECHNIQUE: AP pelvis and two-view left hip FINDINGS: Femoral head articulates with the acetabulum. No acute fractures evident. There is mild dif fuse joint space narrowing of the left hip. Pelvis appears intact. Sacroiliac joints and symphysis pubis are normal. Right femoral head articulat es within the acetabulum. No suspicious lytic or sclerotic lesions are evident. Normal bowel gas is p resent. IMPRESSION: 1. Mild degenerative joint changes bilateral hips
--- NOTE | 2020-12-15 21:22 | MR ---
EXAMINATION TYPE: MR brain wo/w con DATE OF EXAM: 12/14/2020 COMPARISON: 10/22/2020, 08/14/2020 HISTORY: Dizziness, hearing loss, nasuea. Hx of Lung CA and Brain Mets. CONTRAST: Performed utilizing 6 mL intravenous Gadavist gadolinium contrast. TECHNIQUE: Multiplanar, multiecho imaging on a 3.0 Gemma magnet is performed through the brain. Stud y is performed within 24 hours of arrival to the hospital. The craniovertebral junction is normal. The pituitary is normal. Diffusion-weighted imaging is performed. No abnormal hyperintensity is present to suggest an acute i ntracranial infarct or acute ischemic change. Within the white matter changes there is a subtle area of irregular enhancement. Example images serie s 602, image 46, series 603 image 55, series 601 image 54. Metastatic disease should be considered wi th vasogenic edema adjacent. Area of enhancement is estimated to measure 0.4 x 0.8 cm. Additional previous areas of abnormal enhancement metastatic disease are not identified currently. Confluent periventricular and centrum semiovale white matter changes are evident, likely on the basis of postradiation treatment. Microvascular ischemic change could be considered. This however is signi ficantly advanced from the comparison of 10/22/2020. Additional white matter changes evident within th e brainstem bilaterally at the level of the yoko utilized on the inversion recovery weighted sequence s. Ventricles and sulci are appropriate for the patient age. Fluid is present within the bilateral mastoid air cells. Correlate for acute mastoiditis. IMPRESSIONS: 1. There may be a subtle area of new enhancement within the posterior left parietal lobe within the c entrum semiovale suspicious for metastasis. 2. Remaining previously identified metastatic lesions are not evident. 3. Extensive white matter changes progressed from comparison.
== END | disposition home or self-care (01) ==
LOC: RADMRIMAIN 09:17
PROVIDERS: ATTEND Internal Medicine Hematology & Oncology
DX: M16.0 Bilateral primary osteoarthritis of hip (principal); C80.1 Malignant (primary) neoplasm, unspecified; C79.81 Secondary malignant neoplasm of breast; R90.82 White matter disease, unspecified; R11.0 Nausea
CPT/HCPCS: 73502; 70553; A9585

== ENCOUNTER → 2021-01-30 | Outpatient (CLI) | payer MEDICARE ==
[2021-01-30 13:37] LABS: African American GFR (CKD) >90 (>60 ml/min/1.73 sqM); Blood Urea Nitrogen 8 mg/dL (7-17); Non-African American GFR(CKD) >90 (>60 ml/min/1.73 sqM)
--- NOTE | 2021-01-30 15:00 | CT ---
EXAMINATION TYPE: CT ChestAbdPelvis w con DATE OF EXAM: 01/30/2021 COMPARISON: 10/23/20 HISTORY: follow up lung cancer CT DLP: 687.6 mGycm CONTRAST: CT scan of the chest, abdomen and pelvis is performed with Oral Contrast and with IV Contrast, patien t injected with 100 mL of Isovue 300. CT Chest: LUNGS: Again noted is right upper lobe interstitial change unchanged from prior study. The previously noted pulmonary nodule anterior to the measuring 6.5 mm is not reproduced at this time. There is a n odule identified on image 17 of 50 measuring 5 mm unchanged from prior study. No new nodules are iden tified. There is associated pleural thickening right upper lobe. Hyperinflation left lung. MEDIASTINUM: Thoracic aorta is of normal caliber. The heart is not enlarged. Previously noted right paratracheal lymph node is now measuring less than 1 cm. No new adenopathy seen. HILAR STRUCTURES: No evidence for mass. No hilar adenopathy is appreciated. OTHER: No significant abnormality. CONTRAST CT ABDOMEN AND PELVIS FINDINGS: LIVER/GB: No calcified gallstones. Again noted are multiple hepatic lesions however they appear to have decreased in size in overall number indicating treatment response. Several simple cysts are also noted. Biliary tree is of normal caliber. PANCREAS: No inflammation. No distinct mass. SPLEEN: No splenic enlargement. No lesion seen. ADRENALS: No nodule. No thickening. KIDNEYS/BLADDER: No hydronephrosis. No nephrolithiasis. No disctinct renal mass. BOWEL: Normal appendix. Normal bowel caliber. No inflammation. GENITAL ORGANS: No gross abnormality. LYMPH NODES: No greater than 1cm abdominal or pelvic lymph nodes are appreciated. AORTA: No significant abnormality. OSSEOUS STRUCTURES: There is vague sclerosis noted to involve T9 as well as the S1 segment. There is also asymmetric sclerosis involving the right ilium adjacent to the SI joint and the left acetabulum as noted previously. Metastatic disease is not excluded. Previously noted soft tissue adjacent to the left acetabulum appears to have improved. OTHER: No significant additional abnormality is seen. IMPRESSION: 1. Persistent right upper lobe interstitial changes with 5 mm nodule seen. The previously noted nodul e anteriorly as described above in the right upper lobe is not redemonstrated at this time. 2. Persistent but much improved lesions throughout the liver is enlarged overall size and number. 3. Areas of faint bony sclerosis as discussed above felt to reflect metastatic disease.
== END | disposition home or self-care (01) ==
LOC: RADCTMAIN 12:40
PROVIDERS: ATTEND Internal Medicine Hematology & Oncology
DX: C34.91 Malignant neoplasm of unspecified part of right bronchus or lung (principal); C79.31 Secondary malignant neoplasm of brain; R91.1 Solitary pulmonary nodule
CPT/HCPCS: 82565; 84520; 71260; 74177; 36415; Q9967

== ENCOUNTER → 2021-02-10 | Outpatient (CLI) | payer MEDICARE ==
--- NOTE | 2021-02-10 13:30 | MR ---
EXAMINATION TYPE: MR brain wo/w con DATE OF EXAM: 02/10/2021 COMPARISON: Brain MR 12/14/2020 HISTORY: Dizziness, hx lung cancer, evaluate for metastatic disease. TECHNIQUE: Multiplanar, multisequence images of the brain and brainstem is performed without and with IV contras t, utilizing 6 mL intravenous Gadavist . FINDINGS: There is artifact noted especially on the postcontrast images. Diffusion weighted images de monstrate no evidence of a recent infarct or other diffusion abnormality. There is no extra-axial fl uid collection or significant change in confluent periventricular, pericallosal, subcortical white ma tter signal abnormality is noted on inversion recovery T2-weighted sequences. The ventricular system and cisternal spaces are normal in size and appearance. The brain volume is age appropriate, there is some cortical atrophy, prominence of the extra-axial fluid space level similar to prior exam. Midline structures demonstrate partially empty sella, corpus callosum and cervical medullary junction are within normal limits. The craniocervical junction appears within normal limits. Post contrast images demonstrate more abnormal enhancement, focus adjacent to the posterior horn of the left later al ventricle, axial image 56 shows a similar configuration to prior exam. Superficial brain and dural enhancement at the level of the occipital lobe on the right at the surface shows a similar appearanc e to previous exam The dural venous sinuses appear patent. The visualized sinuses are remarkable for some inflammatory change in the sphenoethmoidal region and the globes are intact. Extensive bright si gnal present on inversion recovery T2-weighted sequences involving the temporal bones similar to prio r exam. IMPRESSION: Findings are similar to prior exam. Extensive white matter signal changes, areas of enhan cement shows a similar appearance to prior. Extensive temporal bone inflammatory changes are again no kuldeep.
== END | disposition home or self-care (01) ==
LOC: RADMRIMAIN 09:39
PROVIDERS: ATTEND Radiology Radiation Oncology
DX: C79.51 Secondary malignant neoplasm of bone (principal); C78.7 Secondary malignant neoplasm of liver and intrahepatic bile duct; J44.9 Chronic obstructive pulmonary disease, unspecified; C79.31 Secondary malignant neoplasm of brain; Z92.3 Personal history of irradiation; C34.11 Malignant neoplasm of upper lobe, right bronchus or lung
CPT/HCPCS: 70553; A9585

== ENCOUNTER → 2021-04-14 | Outpatient (CLI) | payer MEDICARE ==
[2021-04-14 09:44] LABS: African American GFR (CKD) >90 (>60 ml/min/1.73 sqM); Blood Urea Nitrogen 17 mg/dL (7-17); Non-African American GFR(CKD) >90 (>60 ml/min/1.73 sqM)
--- NOTE | 2021-04-14 11:25 | CT ---
EXAMINATION TYPE: CT ChestAbdPelvis w con DATE OF EXAM: 04/14/2021 COMPARISON: Most recent CT January 30, 2021 and older CTs. HISTORY: Lung cancer, follow up CT DLP: 570.8 mGycm. Automated Exposure Control for Dose Reduction was Utilized. CONTRAST: CT scan of the thorax, abdomen and pelvis is performed with oral and with IV Contrast, patient inject ed with 100 mL of Isovue 300. FINDINGS: LUNGS: Posttreatment change with right apical and upper lung scarring and central bronchiectasis is r edemonstrated. There is peripheral reticulation and fibrosis again seen. There is stable bilateral 5 mm right upper lung pulmonary nodule axial image 15. Moderate parenchymal scarring extending to right suprahilar level redemonstrated. Left lung remains clear. There is no new pleural effusion or pneu mothorax seen. The tracheobronchial tree is patent. MEDIASTINUM: There are no new greater than 1 cm hilar or mediastinal lymph nodes. Tiny pericardial ef fusion is stable. Heart size stable and upper limits of normal. LIVER/GB: Scatter simple-appearing thin-walled cysts throughout the liver are redemonstrated.. PANCREAS: No significant abnormality is seen. SPLEEN: No significant abnormality is seen. ADRENALS: No significant abnormality is seen. KIDNEYS: No significant abnormality is seen. BOWEL: No significant abnormality is seen. GENITAL ORGANS: Lobulated prominence uterine fundus suspicious for 2.3 cm subserosal fibroid sagittal image 49 redemonstrated. LYMPH NODES: No greater than 1cm abdominal or pelvic lymph nodes are appreciated. OSSEOUS STRUCTURES: Grade 1 anterolisthesis L4 on L5. There is increased sclerosis for example right hip intertrochanteric level coronal image 44 and L4 vertebra anterior superior aspect coronal image 5 4 appear new and/or more prominent from older studies. Stable sclerotic round lesion left osseous gle noid coronal image 63. Several older studies. Underlying scoliosis is redemonstrated. OTHER: No significant additional abnormality is seen. IMPRESSION: Stable posttreatment changes to the right lung. No significant change to suggest recurre nt active neoplasm. Slowly progressing multifocal osseous sclerotic involvement consistent with osseo us metastatic disease over last several CTs is felt present. Findings can be confirmed or correlated with bone scan if desired.
== END | disposition home or self-care (01) ==
LOC: RADCTMAIN 08:55
PROVIDERS: ATTEND Internal Medicine Hematology & Oncology
DX: Z03.89 Encounter for observation for other suspected diseases and conditions ruled out (principal); C34.91 Malignant neoplasm of unspecified part of right bronchus or lung
CPT/HCPCS: 82565; 84520; 71260; 74177; 36415; Q9967

== ENCOUNTER → 2021-08-08 | Outpatient (CLI) | payer MEDICARE ==
[2021-08-08 11:08] LABS: African American GFR (CKD) >90 (>60 ml/min/1.73 sqM); Blood Urea Nitrogen 20 mg/dL (7-17); Non-African American GFR(CKD) >90 (>60 ml/min/1.73 sqM)
--- NOTE | 2021-08-08 14:29 | CT ---
EXAMINATION TYPE: CT ChestAbdPelvis w con DATE OF EXAM: 08/08/2021 COMPARISON: CT dated 04/14/2021 HISTORY: Lung CA CT DLP: 1441 mGycm Automated exposure control for dose reduction was used. CONTRAST: CT scan of the chest, abdomen and pelvis is performed with Oral Contrast and with IV Contrast, patien t injected with 100 mL of Isovue 300. FINDINGS: LUNGS: Redemonstration of the fibrotic changes in the right lung apex and right upper lobe as well as the right lower lobe superior segment, likely related to previous radiation treatment. Right upper l obe superior nodule measuring 6 mm compared to 3.5 mm previously, recurrence cannot be excluded. Stab le 5 mm nodule along the right oblique fissure. Unchanged remainder of the lungs. Patent trachea and main bronchi. No pleural effusion. MEDIASTINUM: Stable 10 mm subcarinal lymph node. No progressive lymph nodes seen in the chest. Unchan ged heart and arterial atherosclerotic calcifications. No pericardial effusion. OTHER: Grossly stable sclerotic areas in the visualized bones, please correlate with bone scan resul ts. LIVER/GB: Multiple variable sized hepatic cysts, appreciated previously. Unremarkable gallbladder. PANCREAS: No significant abnormality is seen. SPLEEN: No significant abnormality is seen. ADRENALS: No significant abnormality is seen. KIDNEYS: No significant abnormality is seen. BOWEL: Colonic diverticulosis. No bowel obstruction. REPRODUCTIVE ORGANS: Suspected anterior uterine wall fibroid measuring 2.7 cm, appreciated previously . Please correlate with pelvic ultrasound results. No gross adnexal mass. LYMPH NODES: No greater than 1 cm abdominal or pelvic lymph nodes are appreciated. OSSEOUS STRUCTURES: Stable sclerotic area in the visualized bones as well as the left posterior aceta bular lucency/chronic insufficiency fracture, please correlate with bone scan results. Grade 1 arias listhesis of L4 over L5. OTHER: Scattered arterial atherosclerotic calcifications. Bilateral fat-containing inguinal hernia. S table right posterior fat-containing diaphragmatic hernia. IMPRESSION: 1. More prominent nodule at the central portion of the right upper lobe fibrotic changes, tumor recur rence at that location can't be excluded. Further PET scan assessment can be considered. 2. Otherwise no evidence of metastatic disease seen in the chest, abdomen or the pelvis. Incidental f indings as described above.
== END | disposition home or self-care (01) ==
LOC: RADCTMAIN 09:57
PROVIDERS: ATTEND Internal Medicine Hematology & Oncology
DX: Z03.89 Encounter for observation for other suspected diseases and conditions ruled out (principal); C34.91 Malignant neoplasm of unspecified part of right bronchus or lung
CPT/HCPCS: 82565; 84520; 71260; 74177; 36415; Q9967 ×2

== ENCOUNTER → 2021-09-03 | Outpatient (CLI) | payer MEDICARE ==
--- NOTE | 2021-09-04 03:48 | MR ---
EXAMINATION TYPE: MR brain wo/w con DATE OF EXAM: 09/03/2021 COMPARISON: 05/26/2021 HISTORY: Secondary malignant neoplasm of brain CONTRAST: Standard multiplanar, multisequence MRI departmental protocol images were obtained without contrast a nd with 7.5 mL intravenous Gadavist gadolinium contrast. On the T2 and FLAIR images there is extensive increased signal in the white matter in both cerebral h emispheres. There is some cerebral cortical atrophy. There is 13 mm focus of extra-axial enhancement in the right occipital lobe convexity that appears sl ightly smaller than last exam. There is subtle 6 mm focus of enhancement left posterior frontal lobe convexity unchanged. There is some faint enhancement in the deep white matter left occipital lobe kelsie r the occipital horn of the lateral ventricle measuring 4 mm and slight decreased enhancement compare d to old exam. There is a 5 mm focus of enhancement in the left caudate nucleus increased compared to the old exam. Diffusion images show single 6 mm focus of increased signal at the right parietal lobe near the cereb ral falx that could be a small acute infarct. This is nonenhancing. There is a second 4 mm high signa l focus in the right posterior frontal lobe which is nonenhancing and could be small acute infarct. The brainstem is intact. There is some diffuse increased signal in the yoko on the FLAIR images. Ther e is increased fluid signal in the mastoid sinuses. IMPRESSION: Right occipital lobe convexity lesion slightly smaller. Left posterior frontal lobe convexity lesion unchanged. There is increasing focus of enhancement in the left caudate nucleus that could be enlargi ng metastatic disease. Left occipital lobe white matter lesion shows decreased enhancement. White matter signal changes consistent with radiation. Bilateral mastoiditis unchanged.
== END | disposition home or self-care (01) ==
LOC: RADMRIMAIN 11:35
PROVIDERS: ATTEND Radiology Radiation Oncology
DX: C79.31 Secondary malignant neoplasm of brain (principal)
CPT/HCPCS: 70553; A9585

== ENCOUNTER → 2021-11-21 | Outpatient (CLI) | payer MEDICARE ==
--- NOTE | 2021-11-21 12:24 | MR ---
EXAMINATION TYPE: MR brain wo/w con DATE OF EXAM: 11/21/2021 COMPARISON: Prior MRI brain September 03, 2021 and older MRIs [facility] HISTORY: SECONDARY MALIGNANT NEOPLASM OF BRAIN, F/U TECHNIQUE: Multiplanar, multisequence images of the brain and brainstem is performed without and with IV contras t, utilizing 7 mL intravenous Gadavist . FINDINGS: Diffusion weighted images redemonstrate persistent 6 to 7 mm area of increased signal on di ffusion-weighted images though less prominent than prior study along the interhemispheric fissure in posterior right frontal lobe image 192 and 200 with diminished signal on ADC mapping showing T2 hyper intensity could reflect age-indeterminate lacunar infarct, some enhancement at this level is now pres ent suggesting subacute infarction. There is mild ventricular and sulcal prominence redemonstrated. Persistent severe multifocal and conf luent areas of T2 hyperintensity seen throughout the superficial, deep, and periventricular white mat ter. Persistent marked increased fluid in the bilateral mastoid air cells. Midline structures redemonstrate empty sella morphology. The craniocervical junction remains within normal limits. The dural venous sinuses remaining patent. The visualized sinuses are clear and the gl obes are intact. Stable posterior right occipital extra-axial rim enhancing 1.3 x 1.0 x 1.2 cm lesion axial image 99 a nd coronal image 55. New vague 12 x 6 x 5 mm enhancement deep right cerebellar hemisphere axial image 42 and coronal image 48 is also seen on sagittal postcontrast images without definitive increased signal on T2-weighted i mages. This corresponds to site of a metastatic focus on August 14, 2020. No suspicious enhancement see n on most recent MRI. Finding is concerning for developing local active metastatic recurrence. Prior visualized 5 mm focus of enhancement left head of caudate nucleus now shows ring enhancement wi th larger T2 hyperintensity measuring 6 x 5 mm. Slightly better visualized but stable in size 5 to 6 mm enhancing superficial subcortical left frontal lesion axial image 100. Suspicion for developing new 3 mm I left frontal metastatic focus axial image 122. IMPRESSION: New enhancement right mid cerebellum suspicious for active metastatic lesion recurrence a s this was site of prior metastatic lesion on August 14, [address] CT. Suspicious 3 mm focus high left front al lobe also identified. Findings suggest metastatic neoplastic progression from most recent MRI.
== END | disposition home or self-care (01) ==
LOC: RADMRIMAIN 10:49
PROVIDERS: ATTEND Radiology Radiation Oncology
DX: C79.31 Secondary malignant neoplasm of brain (principal); C78.7 Secondary malignant neoplasm of liver and intrahepatic bile duct; J44.9 Chronic obstructive pulmonary disease, unspecified; C77.1 Secondary and unspecified malignant neoplasm of intrathoracic lymph nodes; C34.11 Malignant neoplasm of upper lobe, right bronchus or lung; Z79.899 Other long term (current) drug therapy; Z92.3 Personal history of irradiation
CPT/HCPCS: 70553; A9585

== ENCOUNTER → 2021-11-26 | Outpatient (CLI) | payer MEDICARE ==
[2021-11-26 11:34] LABS: African American GFR (CKD) >90 (>60 ml/min/1.73 sqM); Blood Urea Nitrogen 17 mg/dL (7-17); Non-African American GFR(CKD) 89 (>60 ml/min/1.73 sqM)
--- NOTE | 2021-11-26 15:45 | CT ---
EXAMINATION TYPE: CT ChestAbdPelvis w con DATE OF EXAM: 11/26/2021 COMPARISON: CT 08/08/[address] 04/14/2021 HISTORY: Lung Cancer, C 34.91 CT DLP: 931.6 mGycm Automated exposure control for dose reduction was used. CONTRAST: CT scan of the chest, abdomen and pelvis is performed with Oral Contrast and with IV Contrast, patien t injected with 70 ML mL of Isovue 300. FINDINGS: LUNGS: The lungs showing the right upper lobe a nodule in the subpleural location on axial image 15 w hich is becoming increasingly conspicuous over the interval and now measures approximately 8 mm in gr eatest dimension, the coarse reticulations in the right upper lobe, areas of probable post treatment change are again seen, some irregular consolidation on axial image 15 more medially is noted and is t hought to have progressed in leg over the interval, soft tissue component measuring approximately 13 mm on current exam, slightly less than 12 mm in the prior exam and not seen with certainty on prior e xam of 04/14/2021. There is no pleural effusion or pneumothorax seen. Posterior diaphragmatic hernia containing fat on the right is again seen The tracheobronchial tree is patent. MEDIASTINUM: There are no greater than 1 cm hilar or mediastinal lymph nodes. No pericardial effusi on is seen. AORTA: No significant abnormality is seen. OTHER: No additional significant abnormality is seen. LIVER/GB: No significant change is appreciated, multiple cysts are present within the liver, the gall bladder is contracted. PANCREAS: No significant abnormality is seen. SPLEEN: No significant abnormality is seen. ADRENALS: No significant abnormality is seen. KIDNEYS: No significant abnormality is seen. REPRODUCTIVE ORGANS: No gross abnormality seen. BOWEL: Probable duodenal diverticulum present at the head of the pancreas is again noted, common lev e duct is mildly prominent similar to prior exam. FREE AIR: No Free Air visible. ASCITES: None seen. RETROPERITONEAL ADENOPATHY: No retroperitoneal adenopathy is seen. LYMPH NODES: No greater than 1 cm abdominal or pelvic lymph nodes are appreciated. URINARY BLADDER: No significant abnormality is seen. PELVIC ADENOPATHY: None visualized. OSSEOUS STRUCTURES: Sclerotic appearance of the left posterior acetabulum with some associated lytic appearance again noted. Grade 1 anterolisthesis L4-5 is again noted, superior endplate of L4 shows a sclerotic appearance similar to prior exam. IMPRESSION: Nodularity in the right upper lobe has progressed somewhat in the interval, indeterminate .
== END | disposition home or self-care (01) ==
LOC: RADCTMAIN 10:56
PROVIDERS: ATTEND Internal Medicine Hematology & Oncology
DX: Z03.89 Encounter for observation for other suspected diseases and conditions ruled out (principal); C34.91 Malignant neoplasm of unspecified part of right bronchus or lung
CPT/HCPCS: 82565; 84520; 71260; 74177; 36415; Q9967 ×2

== ENCOUNTER → 2022-01-23 | Outpatient (CLI) | payer MEDICARE ==
--- NOTE | 2022-01-26 16:45 | MR ---
EXAMINATION TYPE: MR brain wo/w con DATE OF EXAM: 01/23/2022 COMPARISON: 11/21/2021 HISTORY: Lung cancer, evaluate for metastatic disease. CONTRAST: Performed utilizing 7 mL intravenous Gadavist gadolinium contrast. TECHNIQUE: Multiplanar, multiecho imaging on a 3.0 Gemma magnet is performed through the brain. Stud y is performed within 24 hours of arrival to the hospital. The craniovertebral junction is normal. The pituitary is normal. Diffusion-weighted imaging is performed. Multiple hyperintense lesions identified on diffusion weight ed imaging. This compared with the postcontrast images. Postcontrast imaging is performed. Multiple enhancing lesions are present with adjacent vasogenic nadiya ma compatible with metastatic disease. These areas would include: 1. A 2.1 x 1.6 x 1.3 cm medial right cerebellar lesion. Series 601 image 46 2. Apparent extra-axial dural based lesion with central hypointensity measuring 0.8 x 1.3 x 1.0 cm. S eries 601 image 72. 3. A 0.8 cm intraparenchymal medial left occipital lobe enhancing lesion. Series 601 image 92. 4r a 0 .9 cm left caudate head enhancing nodule. Series 601 image 92. 4. A 1.5 x 1.7 cm dural based enhancing lesion which may have extension into the right occipital lobe . Series 601 image 103. 5. An extra-axial lesion in the left frontal region measuring 1.1 x 0.9 cm. Series 601 image 103. 6. A subtle 0.7 cm enhancing nodule in the posterior right frontal region. Series 601 image 105. 7. A 1.3 x 1.2 x 1.3 cm lesion medial left centrum semiovale. Series 601 image 124. #880.6 cm ring-en hancing lesion medial right centrum semiovale, series 601 image 124. Vasogenic edema is apparent in the posterior right centrum semiovale and right occipital lobe. In the sagittal plane some vasogenic edema is in the posterior right cerebellum. Ventricles and sulci are mildly prominent for the patient age. IMPRESSIONS: 1. Multiple enhancing lesions hyperintense on diffusion weighted imaging compatible with multiple met astatic lesions to the bilateral cerebral with an additional subtentorial lesion within the right cer ebellum.
== END | disposition home or self-care (01) ==
LOC: RADMRIMAIN 11:00
PROVIDERS: ATTEND Radiology Radiation Oncology
DX: C79.31 Secondary malignant neoplasm of brain (principal)
CPT/HCPCS: 70553; A9585

== ENCOUNTER → 2022-03-06 | Outpatient (CLI) | payer MEDICARE ==
[2022-03-06 10:50] LABS: African American GFR (CKD) >90 (>60 ml/min/1.73 sqM); Blood Urea Nitrogen 28 mg/dL (7-17); Non-African American GFR(CKD) 81 (>60 ml/min/1.73 sqM)
--- NOTE | 2022-03-06 13:25 | CT ---
EXAMINATION TYPE: CT ChestAbdPelvis w con DATE OF EXAM: 03/06/2022 COMPARISON: 11/26/2021 HISTORY: Follow-up lung cancer Automated exposure control for dose reduction was used. Technique: Multiple axial images obtained through the Chest, Abdomen Pelvis following the uneventful administration nonionic IV contrast material. FINDINGS: CT CHEST: There is an 8.3 cm nodule in the right upper lobe which was seen previously and is stable. There are ill-defined interstitial densities in right upper lobe most likely secondary to prior radiation thera py. There is a new 16 mm subpleural parenchymal soft tissue mass/nodule in the right upper lobe anteriorl y. re is been interval development of mediastinal and right hilar adenopathy. The largest mediastinal lymph node is 22 mm. Great vessels chest are normal. There is a small sclerotic density in T12 which was seen previously. Metastatic bone lesion not exclu ded. There is a Bochdalek hernia of the right lung base containing fat which was seen previously and is st able. There is no pneumothorax. There is a small right pleural effusion which is stable. CT abdomen and pelvis: Again seen are multiple hepatic cysts. The gallbladder is not distended and there are no gallstones. There is no biliary ductal dilatation. There is no focal mass involving the pancreas, spleen or adrenal glands. The kidneys excrete contrast promptly and symmetrically and there is no solid renal mass or hydroneph rosis. There is no retroperitoneal adenopathy or hemorrhage in the caliber of the abdominal aorta is normal. The bowel loops are normal in caliber and there is no bowel obstruction. No inflammatory changes are identified in the bowel wall or mesentery. There is no free intraperitoneal air or fluid. There is no pelvic mass, free fluid or adenopathy. There is an ill-defined partially sclerotic partially lytic abnormality in the posterior left acetabu lum which is stable and suspicious for bone metastasis. IMPRESSION: 1. Interval progression of lung cancer with interval development of mediastinal and right hilar lymph adenopathy as well as a new right upper lobe anterior subpleural parenchymal mass. 2. No sgnificant abnormality within the abdomen. 3. Left acetabular bony lesion and possible sclerotic lesion in T12 suspicious for bone metastasis. C orrelation with bone scan is recommended. These changes were seen previously and are stable.
== END | disposition home or self-care (01) ==
LOC: RADCTMAIN 09:43
PROVIDERS: ATTEND Internal Medicine Hematology & Oncology
DX: C34.01 Malignant neoplasm of right main bronchus (principal); R59.0 Localized enlarged lymph nodes
CPT/HCPCS: 82565; 84520; 71260; 74177; 36415; Q9967

== ENCOUNTER 2022-04-08 10:19 | Inpatient (IN) | payer MEDICARE ==
[2022-04-08] MEDS ORDERED: SODIUM CHLORIDE 0.9% 500 ML 500 ML IV ONE (10:56)
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
--- NOTE | 2022-04-08 11:38 | XR ---
EXAMINATION TYPE: XR chest 2V DATE OF EXAM: 04/08/2022 COMPARISON: NONE HISTORY: Shortness of breath TECHNIQUE: Frontal and lateral views of the chest are obtained. FINDINGS: Scattered senescent parenchymal changes noted. Hyperinflation compatible with COPD. No evidence for infiltrate. No evidence for atelectasis. Right upper lobe masslike area is and was de scribed on the recent CT of 03/06/2022. Heart size is stable. Mediastinal structures are stable and grossly unremarkable. No evidence for hilar prominence. Degenerative changes dorsal spine. IMPRESSION: 1. No evidence for acute pulmonary disease.
--- NOTE | 2022-04-08 12:00 | CT ---
EXAMINATION TYPE: CT brain wo con DATE OF EXAM: 04/08/2022 COMPARISON: MRI 11/21/2021 HISTORY: 72-year-old female history of lung cancer, complications from chemoradiation, dizziness, Alt ered mental status TECHNIQUE: Examination was done in axial plane without intravenous contrast. Coronal and sagittal r econstructions performed. CT DLP: 1090.4 mGycm Automated exposure control for dose reduction was used. FINDINGS: Diffuse white matter hypodensity suggesting prior radiation therapy change. [id number] cerebral cortical volume loss. Suspect enlarging mass posterior right parieto-occipital junction measuring up to 2.9 cm with heterog eneous areas of relatively high density. Associated extra-axial calcification measuring up to 1.2 cm is noted but was not well demonstrated on the patient's MRI. Similar lesion measuring approximately 2.0 cm right paramedian cerebellum versus approximately 1.2 cm on 11/21/2021 may be progressing as well. Again, heterogeneous relatively high density areas are pres ent. There is some asymmetric sulcal effacement demonstrated along the right superior convexity that seems to be new from 11/21/2021, refer to axial image 42. Empty sella noted. Extensive opacification of the mastoid air cells and middle ear cavities was present on the prior sukhjinder dy as well. IMPRESSION: 1. Heterogeneous lesion posterior right parietal-occipital junction appears to be larger at 2.9 cm ve rsus 1.3 cm on 11/21/2021. Correlate for disease progression. The presence of heterogeneous areas of r elatively high density within the lesion could represent hemorrhagic metastasis. 2. Similarly, a 2.0 cm lesion in the right paramedian cerebellum previously measured 1.2 cm and may b e progressing as well. Similar internal high density areas are present. 3. Diffuse white matter hypodensity suggesting prior whole brain radiation therapy. However, there is new relative sulcal effacement superior right cerebrum. This may reflect some concurrent vasogenic e leanne on the right. No midline shift, hydrocephalus, or herniation. 4. Ongoing extensive fluid throughout the mastoid air cells and middle ear cavities. Correlate to exc lude bilateral otomastoiditis.
[2022-04-08 12:17] LABS: Anisocytosis Slight; HCT 32.8 % (34.0-46.0); HGB 10.7 gm/dL (11.4-16.0); Hypochromasia Moderate; MCH 29.9 pg (25.0-35.0); MCHC 32.7 g/dL (31.0-37.0); MCV 91.6 fL (80.0-100.0); Mean Platelet Volume 9.5; Platelet Count 101 k/uL (150-450); RBC 3.58 m/uL (3.80-5.40); RDW 18.4 % (11.5-15.5)
[2022-04-08 12:24] LABS: INR 0.9 (<1.2)
[2022-04-08 12:27] LABS: ALT 20 U/L (4-34); AST 27 U/L (14-36); African American GFR (CKD) >90 (>60 ml/min/1.73 sqM); Albumin 3.7 g/dL (3.5-5.0); Alkaline Phosphatase 79 U/L (38-126); Anion Gap 4 mmol/L; Blood Urea Nitrogen 12 mg/dL (7-17); Calcium 8.4 mg/dL (8.4-10.2); Carbon Dioxide 27 mmol/L (22-30); Chloride 111 mmol/L (98-107); Glucose 115 mg/dL (74-99); Non-African American GFR(CKD) 86 (>60 ml/min/1.73 sqM); Potassium 3.4 mmol/L (3.5-5.1); Sodium 142 mmol/L (137-145); Total Bilirubin 0.4 mg/dL (0.2-1.3); Total Protein 5.5 g/dL (6.3-8.2)
[2022-04-08 12:55] LABS: Amorphous Sediment,Urine Moderate /hpf; Appearance,Urine Cloudy (Clear); Bilirubin,Urine Negative (Negative); Blood,Urine Negative (Negative); Color,Urine Yellow; Glucose,Urine (UA) Negative (Negative); Hyaline Casts,Urine 12 /lpf (0-2); Ketones,Urine Negative (Negative); Leukocyte Esterase,Urine Trace (Negative); Mucus,Urine Few /hpf; Nitrite,Urine Negative (Negative); Protein,Urine Trace (Negative); RBC,Urine 1 /hpf (0-5); Specific Gravity,Urine 1.015 (1.001-1.035); Squamous Epithelial Cell,Urine <1 /hpf (0-4); Urobilinogen,Urine <2.0 mg/dL (<2.0); WBC,Urine 3 /hpf (0-5)
[2022-04-08 12:59] LABS: Amphetamine Screen,Urine Not Detected (NotDetected); Barbiturate Screen,Urine Not Detected (NotDetected); Benzodiazepines Screen,Urine Not Detected (NotDetected); Cocaine Screen,Urine Not Detected (NotDetected); Methadone Screen, Urine Not Detected (NotDetected); Opiate Screen,Urine Not Detected (NotDetected); Oxycodone Screen, Urine Not Detected (NotDetected); Phencyclidine Screen,Urine Not Detected (NotDetected); Tricyclic Antidepressant,Urine Not Detected (NotDetected); Urn Cannabinoid Scrn Not Detected (NotDetected)
[2022-04-08] MEDS ORDERED: DEXAMETHASONE SOD PHOSPHATE 10 MG/ML 1 ML VIAL IVP STA (13:27)
[2022-04-08 13:28] LABS: Metamyelocytes # (M) 0.03 k/uL (0); Metamyelocytes % 1 %; Monocytes # (M) 0.45 k/uL (0-1.0); Myelocytes # (M) 0.08 k/uL (0); Myelocytes % 3 %; Neutrophils % (M) 64 %; Nucleated Red Blood Cells 3 /100 WBC (0-0); Total Cells Counted 200; WBC 2.5 k/uL (3.8-10.6)
[2022-04-08] MEDS ORDERED: SODIUM CHLORIDE 0.9% 1,000 ML IV ONE (14:08)
[2022-04-08] MEDS ORDERED: ALBUTEROL NEBULIZED 2.5 MG/3 ML INHALATION PRN (18:38)
[2022-04-08] MEDS ORDERED: ONDANSETRON 4 MG TAB PO PRN (18:38)
[2022-04-08] MEDS ORDERED: LOPERAMIDE 2 MG CAP PO PRN (18:38)
[2022-04-08] MEDS ORDERED: SUMAtriptan succinate 50 MG TAB PO PRN (18:38)
[2022-04-08] MEDS: ATORVASTATIN 10 MG TAB PO SCH (20:50)
[2022-04-08] MEDS ORDERED: TEMAZEPAM 15 MG CAP PO PRN (21:22)
[2022-04-08] MEDS ORDERED: CALCIUM CARBONATE 500 MG CHEWABLE PO PRN (21:22)
[2022-04-08] MEDS ORDERED: LACTULOSE 20 GM/30 ML CUP PO PRN (21:22)
[2022-04-08] MEDS ORDERED: ONDANSETRON 4 MG/2 ML VIAL IVP PRN (21:22)
[2022-04-08] MEDS ORDERED: NALOXONE 0.4 MG/ML 1 ML VIAL IV PRN (21:22)
[2022-04-08] MEDS ORDERED: ACETAMINOPHEN TAB 325 MG TAB PO PRN (21:22)
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
[2022-04-08] MEDS: IPRATROPIUM-ALBUTEROL 3 ML NEB INHALATION SCH (21:35)
[2022-04-08] MEDS: NICOTINE 14MG/24HR PATCH TRANSDERM SCH (22:09)
[2022-04-09] MEDS: dexAMETHasone 2 MG TAB PO SCH ×3 (00:03→17:50)
[2022-04-09] MEDS: IPRATROPIUM-ALBUTEROL 3 ML NEB INHALATION SCH ×4 (07:23→20:27)
[2022-04-09] MEDS: FOLIC ACID 1 MG TAB PO SCH (09:09)
[2022-04-09] MEDS: CHOLECALCIFEROL 25 MCG (1000 IU) TABLET PO SCH (09:10)
[2022-04-09] MEDS: CYANOCOBALAMIN 500 MCG TAB PO SCH (09:10)
[2022-04-09] MEDS: METOPROLOL SUCCINATE (ER) 100 MG TAB.ER.24H PO SCH (09:10)
[2022-04-09] MEDS: NICOTINE 14MG/24HR PATCH TRANSDERM SCH (09:10)
[2022-04-09] MEDS: TOPIRAMATE 100 MG TAB PO SCH (09:10)
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
[2022-04-09] MEDS: levETIRAcetam 500 MG TAB PO SCH ×2 (13:38→20:26)
[2022-04-09] MEDS: ATORVASTATIN 10 MG TAB PO SCH (20:26)
[2022-04-09 23:52] LABS: Glucose,Whole Blood 154 mg/dL (70-110)
[2022-04-10] MEDS: dexAMETHasone 2 MG TAB PO SCH ×3 (00:44→17:30)
[2022-04-10 01:28] VITALS: TEMP 97.8
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
[2022-04-10] MEDS: IPRATROPIUM-ALBUTEROL 3 ML NEB INHALATION SCH ×3 (11:23→15:59)
[2022-04-10 11:30] VITALS: PULSE 80
[2022-04-10] MEDS: FOLIC ACID 1 MG TAB PO SCH (11:30)
[2022-04-10] MEDS: CYANOCOBALAMIN 500 MCG TAB PO SCH (11:30)
[2022-04-10] MEDS: levETIRAcetam 500 MG TAB PO SCH (11:30)
[2022-04-10] MEDS: NICOTINE 14MG/24HR PATCH TRANSDERM SCH (11:30)
[2022-04-10] MEDS: METOPROLOL SUCCINATE (ER) 100 MG TAB.ER.24H PO SCH (11:30)
[2022-04-10] MEDS: CHOLECALCIFEROL 25 MCG (1000 IU) TABLET PO SCH (11:30)
[2022-04-10] MEDS: TOPIRAMATE 100 MG TAB PO SCH (11:30)
--- NOTE | 2022-04-10 11:42 | MR ---
EXAMINATION TYPE: MR brain wo/w con DATE OF EXAM: 04/10/2022 COMPARISON: Prior MRI brain January 23, 2022 HISTORY: Known brain mets, AMS, assess for progression. TECHNIQUE: Multiplanar, multisequence images of the brain and brainstem is performed without and with IV contras t, utilizing 7 mL intravenous Gadavist . FINDINGS: Current exam slightly suboptimal due to patient inability to hold still. Diffusion weighted images demonstrate no evidence of a recent infarct or other diffusion abnormality. . Mild ventricular and sulcal prominence redemonstrated. Posterior near midline Right cerebellar lesion measures 1.8 x 1.3 cm current study diminished in size with marked diminished enhancement from most recent MRI and improved adjacent vasogenic edema. Old b lood product redemonstrated. Dural based inferior left temporal lesion measures 6 x 5 mm diminished in size from prior study where it measured 13 x 8 mm axial image 13 series 1001. No persistent enhancing lesion at level of left head of caudate nucleus with residual round 3 mm T1 h ypointense lesion noted. Persistent ring enhancing 7 mm lesion just posterior to the left splenium of corpus callosum axial im age 18 fairly stable in size with less central enhancement, improved but some residual adjacent edema at this level is noted. Peripheral left frontal lobe lesion now measures 7 x 6 mm diminished in size from 10 mm prior study w ithout adjacent vasogenic edema currently. There are 2 adjacent enhancing lesions along the superior falx axial image 124 prior study now are di minished in size and not clearly seen on current study. Only area of nonimprovement is the right occipital heterogeneous lesion which shows less prominent en hancement but increase in size with areas of blood product measuring approximately 3.1 x 2.8 cm curre nt study axial image 20 versus 1.7 x 1.6 cm prior study. There is increasing vasogenic edema and sulc al effacement extending into the right parietal lobe and extending superiorly at this level noted marshall jesus prior MRI. Diffuse increased T2 signal throughout the white matter bilaterally remains present worse on the righ t. No new enhancing lesions are seen. Midline structures redemonstrated empty sella morphology. The craniocervical junction remains within normal limits. The dural venous sinuses appear patent. Prominent CSF surrounding the optic nerve she aths again seen. Paranasal sinuses remain clear. Marked fluid signal in the mastoid air cells remains present. IMPRESSION: Overall mixed response with majority of lesions showing marked improvement and/or nonvisu alization or nonenhancement with improved and/or resolved vasogenic edema however the posterior right occipital lesion shows less prominent enhancement but increased size and significant more prominent mass effect and/or vasogenic edema extending superiorly and inferiorly versus a most recent MRI as de tailed above
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
[2022-04-10 17:30] VITALS: BP 132/95; RESP 18
--- NOTE | 2022-04-10 21:47 | EEG ---
ELECTROENCEPHALOGRAM REPORT PREAMBLE: This is a 72-year-old female with small-cell lung cancer with brain metastasis. She was diagnosed in 2020. The patient has increasing dizziness and has been veering to her left. This study is performed to evaluate for any epileptiform activity. EEG FINDINGS: This is a 21-channel digital EEG recorded with video component, utilizing 10/20 international system with referential and bipolar montages. Background consists of well developed, well regulated moderate voltage activity in 8 to 9 hertz alpha. Background is posterior dominant and reactive to eye opening and closing. Some dysrhythmic delta and theta slowing was seen in the right parietal temporal region. Photic driving response was not seen. Some sharp-appearing waves were seen in the right parietal region during photic stimulation, but not during remainder of the study, therefore questionable significance. Stage 2 sleep was attained with presence of sleep spindles and vertex waves. No electrographic seizure was recorded. EKG channel showed no obvious arrhythmia. IMPRESSION: This is an abnormal EEG due to presence of intermittent focal dysrhythmic slowing in the right parietal temporal region, suggestive of focal cortical neuronal dysfunction. No clear-cut epileptiform activity was seen. Suggest prolonged, sleep-deprived EEG for further evaluation. MMODL / IJN: [id number] /
== END 2022-04-10 18:15 | disposition home or self-care (01) | DRG 100 ==
LOC: EC 10:19 → 4SSUR 14:08 → 5NMEDONC 16:13 → 3SCARD 17:38
PROVIDERS: ADMIT Hospitalist; ATTEND Hospitalist
PROC: 4A10X4Z Monitoring of Central Nervous Electrical Activity, External Approach (ICD-10-PCS; principal; 2022-04-08)
DX: R56.9 Unspecified convulsions (principal); G93.6 Cerebral edema; I61.9 Nontraumatic intracerebral hemorrhage, unspecified; C34.90 Malignant neoplasm of unspecified part of unspecified bronchus or lung; C79.31 Secondary malignant neoplasm of brain; I87.1 Compression of vein; G93.0 Cerebral cysts; F17.210 Nicotine dependence, cigarettes, uncomplicated; I10 Essential (primary) hypertension; E78.5 Hyperlipidemia, unspecified; E66.9 Obesity, unspecified; Z68.31 Body mass index [BMI] 31.0-31.9, adult; G43.909 Migraine, unspecified, not intractable, without status migrainosus; G47.00 Insomnia, unspecified; H91.90 Unspecified hearing loss, unspecified ear; J44.9 Chronic obstructive pulmonary disease, unspecified; K59.00 Constipation, unspecified; W19.XXXA Unspecified fall, initial encounter; Y92.410 Unspecified street and highway as the place of occurrence of the external cause; Z79.899 Other long term (current) drug therapy; Z85.118 Personal history of other malignant neoplasm of bronchus and lung; Z88.5 Allergy status to narcotic agent; Z91.048 Other nonmedicinal substance allergy status; Z88.8 Allergy status to other drugs, medicaments and biological substances; Z71.6 Tobacco abuse counseling
CPT/HCPCS: 36415; 70450; 70553; 71046; 80053; 80306; 81001; 84484; 85025; 85610; 85730; 93005; 94640; 95816; 96361; 96374; 99291

== ENCOUNTER 2022-05-25 09:21 | Inpatient (IN) | payer MEDICARE ==
[2022-05-25] MEDS ORDERED: ONDANSETRON 4 MG/2 ML VIAL IVP STA ×2 (09:31→12:28)
[2022-05-25] MEDS ORDERED: ACETAMINOPHEN IV (For NPO) 1,000 MG in EMPTY BAG 1 BAG IVPB STA (09:38)
[2022-05-25] MEDS ORDERED: KETOROLAC 15 MG/ML 1 ML VIAL IVP STA (09:38)
[2022-05-25] MEDS ORDERED: SODIUM CHLORIDE 0.9% 1,000 ML IV STA (09:43)
--- NOTE | 2022-05-25 09:51 | ED ---
Weakness HPI - General Chief complaint: Weakness Stated complaint: weakness Time Seen by Provider: 05/25/22 09:25 Source: patient, family, EMS, RN notes reviewed Mode of arrival: EMS Limitations: no limitations - History of Present Illness Initial comments: This is a 72-year-old female who presents to the emergency department with generalized weakness and body pain. Patient is being treated for metastatic small cell lung cancer and was diagnosed in 2019. She was admitted last month and was found to have metastasis to the brain. Currently being treated by Dr. Turner and Dr. Saeed. States that she is between chemotherapy treatments. She has felt particularly weak starting 2 months ago and the body pain started over the last 1-2 weeks. Also notes nausea and diarrhea over the last couple of days, however she denies any vomiting. Denies any fevers, chills, sore throat, cough, dyspnea, chest pain, palpitations, vomiting, or headaches. MD Complaint: generalized weakness Onset/Timin -: month(s) Location: generalized - Related Data Home Medications Medication Instructions Recorded Confirmed Albuterol Sulfate [Proair Hfa] 2 puff INHALATION RT-Q4H PRN 08/24/19 05/25/22 Biotin 10,000 mcg PO DAILY 08/24/19 05/25/22 Cyanocobalamin (Vitamin B-12) 5,000 mcg PO DAILY 08/24/19 05/25/22 [Vitamin B-12] Fluticasone Propionate [Flonase 1 spr EA NOSTRIL DAILY 08/24/19 05/25/22 Allergy Relief] Loperamide [Imodium] 2 mg PO QID PRN 08/24/19 05/25/22 SUMAtriptan succinate [Imitrex] 50 mg PO DAILY PRN 08/24/19 05/25/22 Simvastatin [Zocor] 20 mg PO HS 08/24/19 05/25/22 ondansetron HCL [Zofran] 8 mg PO Q8H PRN 09/05/19 05/25/22 Metoprolol Succinate [Toprol XL] 100 mg PO DAILY 09/07/19 05/25/22 Folic Acid 1 mg PO DAILY 03/17/21 05/25/22 Cholecalciferol [Vitamin D3 (25 50 mcg PO DAILY 04/08/22 05/25/22 Mcg = 1000 Iu)] Prochlorperazine [Compazine] 10 mg PO Q6H PRN 04/08/22 05/25/22 Topiramate [Topamax] 100 mg PO DAILY 04/08/22 05/25/22 Budesonide/Formoterol Fumarate 1 puff INHALATION RT-BID 05/25/22 05/25/22 [Symbicort 160-4.5 Mcg Inhaler] Furosemide [Lasix] 40 mg PO DAILY 05/25/22 05/25/22 Potassium Chloride ER [K-Dur 20] 20 meq PO BID 05/25/22 05/25/22 Previous Rx's Medication Instructions Recorded Nicotine 14Mg/24Hr Patch [Habitrol] 1 patch TRANSDERM DAILY #14 patch 04/10/22 Allergies Allergy/AdvReac Type Severity Reaction Status Date / Time meperidine [From Demerol] Allergy Severe Nausea & Verified 05/25/22 10:59 Vomiting codeine Allergy Nausea & Verified 05/25/22 10:59 Vomiting nickel Allergy Rash/Hives Verified 05/25/22 10:59 Review of Systems ROS Statement: Those systems with pertinent positive or pertinent negative responses have been documented in the HPI. ROS Other: All systems not noted in ROS Statement are negative. Past Medical History Past Medical History: COPD, Hearing Disorder / Deafness, Hyperlipidemia, Hypertension Additional Past Medical History / Comment(s): Hal RHODES. Migraines, vertigo. RUL lung mass, Pleural Effusion, cervical lymph nodes enlarged, shortness of breath, edema face/chest/breasts. Muscle cramps BLE, fingers. History of Any Multi-Drug Resistant Organisms: None Reported Past Surgical History: Tonsillectomy Additional Past Surgical History / Comment(s): D&C. Colonoscopy. Lung Biopsy Past Anesthesia/Blood Transfusion Reactions: Family History of Problems w/ Anesthesia Additional Past Anesthesia/Blood Transfusion Reaction / Comment(s): Reaction to Demerol given with colonoscopy. Mother has problems Past Psychological History: No Psychological Hx Reported Smoking Status: Former smoker Past Alcohol Use History: None Reported Past Drug Use History: None Reported - Past Family History Mother Family Medical History: Cancer, Deep Vein Thrombosis (DVT) Additional Family Medical History / Comment(s): kidney cancer General Exam Limitations: no limitations General appearance: alert, in distress Head exam: Present: atraumatic, normocephalic, normal inspection Respiratory exam: Present: normal lung sounds bilaterally. Absent: respiratory distress, wheezes, rales, rhonchi, stridor Cardiovascular Exam: Present: regular rate, normal rhythm, normal heart sounds. Absent: systolic murmur, diastolic murmur, rubs, gallop, clicks GI/Abdominal exam: Present: soft, distended, tenderness (diffuse), normal bowel sounds Neurological exam: Present: alert, oriented X3, CN II-XII intact Psychiatric exam: Present: normal affect, normal mood Skin exam: Present: warm, dry, intact, normal color. Absent: rash Course Vital Signs 05/25/22 05/25/22 09:25 10:23 Temperature 98.3 F Pulse Rate 41 L 105 H Respiratory 22 18 Rate Blood Pressure 101/60 106/76 O2 Sat by Pulse 98 94 L Oximetry EKG Findings - EKG Comments: EKG Findings:: Sinus tachycardia. Ventricular rate 111 bpm, MI interval 124 ms, QRS duration 83 ms, QTC 391 ms. Medical Decision Making - Medical Decision Making This is a 72-year-old female who presents to the emergency department for generalized weakness and body pain. Was pt. sent in by a medical professional or institution? @ -No Did you speak to anyone other than the patient for history? @ -EMS and her . Did you review nursing and triage notes? @ -Agree, accurate with regards to the patient's symptoms. Were old charts reviewed? @ -Yes, admission records from 04/08/22-04/10/2022. Differential Diagnosis? @ -Differential Weakness: Hypoglycemia, shock, sepsis, hyponatremia, anemia, infection, RI, ETOH, adverse medicine reaction, overdose, stroke, this is not meant to be an all-inclusive list. EKG interpreted by me (3pts min.)? @ -Sinus tachycardia, ventricular rate 111 bpm, MI interval 124 ms, QRS duration 83 ms, QTC [address] interpreted by me (1pt min.)? @ -Computed tomography scan of the chest, abdomen, and pelvis obtained. My interpretation identifies a right upper lobe lung mass and significant and diffuse adenopathy. Hepatic cysts are also noted. What testing was considered but not performed? (CT, X-rays, U/S, labs)? Why? @ -None What meds were considered but not given? Why? @ -None Did you discuss the management of the patient with other professionals? @ -Dr. Fuller, who accepts the patient for admission. Did you reconcile home meds? @ -Yes Was smoking cessation discussed for >3mins.? @ -No Was critical care preformed (if so, how long)? @ -Yes, 32 minutes. Were there social determinants of health that impacted care today? How? (Homelessness, low income, unemployed, alcoholism, drug addiction, transportation, low edu. Level, literacy, decrease access to med. care, intermediate, rehab)? @ -None Was there de-escalation of care discussed even if they declined? (Discuss DNR or withdrawal of care, Hospice)? @ -No What co-morbidities impacted this encounter? (DM, HTN, Smoking, COPD, CAD, Cancer, CVA, Hep., AIDS, mental health diagnosis, sleep apnea, morbid obesity)? @ -Metastatic lung cancer, COPD, HTN, HLD. Was patient admitted / discharged? @ -Patient was given IV fluids, Zofran, Toradol, and Ofirmev. Lab work ob tained revealing substantially worse kidney function and liver enzymes when compared with labs on 05/12/21. Computed tomography scan of the abdomen and pelvis obtained, and is consistent with progression of the cancer. Toradol and Ofirmev did not control her symptoms. We held off on the stronger pain medication initially, as she has a noted allergy and it does not appear that she has gotten much in the way of narcotic pain medication here in the past. She started to complain of uncontrollable pain. We subsequently decided to give her Dilaudid with Benadryl and Zofran. She tolerated this well and it offered improvement to her symptoms. Patient will be admitted to medicine for evaluation by palliative care and PT/OT. Drug Therapy requiring intensive monitoring for toxicity (Heparin, Nitro, Insulin, Cardizem)? @ -None Were any procedures done? @ -No Diagnosis/symptom? @ -Weakness Acute, or Chronic, or Acute on Chronic? @ -Chronic Uncomplicated (without systemic symptoms) or Complicated (systemic symptoms)? @ -Complicated Side effects of treatment? @ -None Exacerbation, Progression, or Severe Exacerbation] @ -Progression Poses a threat to life or bodily function? @ -Yes Diagnosis/symptom? @ -Pain Acute, or Chronic, or Acute on Chronic? @ -Acute on chronic Uncomplicated (without systemic symptoms) or Complicated (systemic symptoms)? @ -Complicated Side effects of treatment? @ -None Exacerbation, Progression, or Severe Exacerbation] @ -Progression Poses a threat to life or bodily function? @ -Yes Diagnosis/symptom? @ -Metastatic lung cancer Acute, or Chronic, or Acute on Chronic? @ -Chronic Uncomplicated (without systemic symptoms) or Complicated (systemic symptoms)? @ -Complicated Side effects of treatment? @ -None Exacerbation, Progression, or Severe Exacerbation] @ -Progression Poses a threat to life or bodily function? @ -Yes This case was discussed in detail with the attending ED physician, Dr. Alvarez. Presentation, findings, and treatment plan discussed in detail as well. - Lab Data Result diagrams: 05/25/22 09:41 05/25/22 09:41 Lab Results 05/25/22 05/25/22 05/25/22 Range/Units 09:41 09:41 09:41 WBC 11.5 H (3.8-10.6) k/uL RBC 4.04 (3.80-5.40) m/uL Hgb 12.8 (11.4-16.0) gm/dL Hct 40.0 (34.0-46.0) % MCV 99.1 D (80.0-100.0) fL MCH 31.6 (25.0-35.0) pg MCHC 31.9 (31.0-37.0) g/dL RDW 18.2 H (11.5-15.5) % Plt Count 261 D (150-450) k/uL MPV 8.1 Neutrophils % 89 % Lymphocytes % 5 % Monocytes % 5 % Eosinophils % 0 % Basophils % 0 % Neutrophils # 10.2 H (1.3-7.7) k/uL Lymphocytes # 0.5 L (1.0-4.8) k/uL Monocytes # 0.6 (0-1.0) k/uL Eosinophils # 0.0 (0-0.7) k/uL Basophils # 0.0 (0-0.2) k/uL Anisocytosis Slight Macrocytosis Slight Sodium 135 L (137-145) mmol/L Potassium 5.3 H (3.5-5.1) mmol/L Chloride 106 (98-107) mmol/L Carbon Dioxide 21 L (22-30) mmol/L Anion Gap 8 mmol/L BUN 52 H (7-17) mg/dL Creatinine 1.90 H (0.52-1.04) mg/dL Est GFR (CKD-EPI)AfAm 30 (>60 ml/min/1.73 sqM) Est GFR (CKD-EPI)NonAf 26 (>60 ml/min/1.73 sqM) Glucose 119 H (74-99) mg/dL Lactic Ac Sepsis Rflx Plasma Lactic Acid Serge 3.5 H* (0.7-2.0) mmol/L Calcium 9.8 (8.4-10.2) mg/dL Phosphorus 3.9 (2.5-4.5) mg/dL Magnesium 2.7 H (1.6-2.3) mg/dL Total Bilirubin 4.3 H (0.2-1.3) mg/dL AST 387 H (14-36) U/L ALT 159 H (4-34) U/L Alkaline Phosphatase 478 H (38-126) U/L Total Protein 5.6 L (6.3-8.2) g/dL Albumin 3.1 L (3.5-5.0) g/dL 05/25/22 Range/Units 10:29 WBC (3.8-10.6) k/uL RBC (3.80-5.40) m/uL Hgb (11.4-16.0) gm/dL Hct (34.0-46.0) % MCV (80.0-100.0) fL MCH (25.0-35.0) pg MCHC (31.0-37.0) g/dL RDW (11.5-15.5) % Plt Count (150-450) k/uL MPV Neutrophils % % Lymphocytes % % Monocytes % % Eosinophils % % Basophils % % Neutrophils # (1.3-7.7) k/uL Lymphocytes # (1.0-4.8) k/uL Monocytes # (0-1.0) k/uL Eosinophils # (0-0.7) k/uL Basophils # (0-0.2) k/uL Anisocytosis Macrocytosis Sodium (137-145) mmol/L Potassium (3.5-5.1) mmol/L Chloride (98-107) mmol/L Carbon Dioxide (22-30) mmol/L Anion Gap mmol/L BUN (7-17) mg/dL Creatinine (0.52-1.04) mg/dL Est GFR (CKD-EPI)AfAm (>60 ml/min/1.73 sqM) Est GFR (CKD-EPI)NonAf (>60 ml/min/1.73 sqM) Glucose (74-99) mg/dL Lactic Ac Sepsis Rflx Y Plasma Lactic Acid Serge (0.7-2.0) mmol/L Calcium (8.4-10.2) mg/dL Phosphorus (2.5-4.5) mg/dL Magnesium (1.6-2.3) mg/dL Total Bilirubin (0.2-1.3) mg/dL AST (14-36) U/L ALT (4-34) U/L Alkaline Phosphatase (38-126) U/L Total Protein (6.3-8.2) g/dL Albumin (3.5-5.0) g/dL - Radiology Data Radiology results: report reviewed, image reviewed Disposition Clinical Impression: Small cell carcinoma of lung, Metastatic lung cancer (metastasis from lung to other site), Weakness Disposition: ADMITTED IP TO THIS HOSP
[2022-05-25 10:12] LABS: Anisocytosis Slight; Basophils % (A) 0 %; Eosinophils % (A) 0 %; HGB 12.8 gm/dL (11.4-16.0); Lymphocytes # (A) 0.5 k/uL (1.0-4.8); Lymphocytes % (A) 5 %; MCH 31.6 pg (25.0-35.0); MCHC 31.9 g/dL (31.0-37.0); Macrocytosis Slight; Mean Platelet Volume 8.1; Monocytes # (A) 0.6 k/uL (0-1.0); Monocytes % (A) 5 %; Neutrophils # (A) 10.2 k/uL (1.3-7.7); Neutrophils % (A) 89 %; RBC 4.04 m/uL (3.80-5.40); RDW 18.2 % (11.5-15.5); WBC 11.5 k/uL (3.8-10.6)
[2022-05-25 10:22] LABS: MCV 99.1 fL (80.0-100.0); Platelet Count 261 k/uL (150-450)
[2022-05-25 10:28] LABS: Albumin 3.1 g/dL (3.5-5.0); Calcium 9.8 mg/dL (8.4-10.2); Phosphorus 3.9 mg/dL (2.5-4.5); Total Bilirubin 4.3 mg/dL (0.2-1.3); Total Protein 5.6 g/dL (6.3-8.2)
[2022-05-25 10:29] LABS: Magnesium 2.7 mg/dL (1.6-2.3); Potassium 5.3 mmol/L (3.5-5.1)
--- NOTE | 2022-05-25 11:22 | CT ---
EXAMINATION TYPE: CT ChestAbdPelvis wo con DATE OF EXAM: 05/25/2022 INDICATION: pain, history of metastatic lung CA COMPARISON: 02/26/2022 CT DLP: 946.4 mGycm CONTRAST: None TECHNIQUE: Axial images at 5 mm thick sections. Reconstructed images in the coronal plane. Delayed images through the kidneys. FINDINGS: CT CHEST: Portion of the thyroid visualized is normal. There is a moderate right pleural effusion. There appears to be herniation of mesenteric fat in the p osterior right lung base There is a 7.9 x 4.3 cm mass in the superior medial right lung. This extends to the hilum can be comp atible with patient's reported lung cancer. This is an interval finding from 03/06/2022. Enlarged pretracheal lymphadenopathy is present. This may measure 2.0 cm just above the carlos alberto. Subca rinal lymph node is enlarged measuring 1.6 cm. Fullness in the right hilar region could be related to underlying adenopathy. This is difficult to evaluate lacking oral contrast during this exam. The ascending aorta diameter at the level of the main pulmonary artery is 3.7 cm. The main pulmonary artery diameter at the bifurcation is 2.8 cm. Small Pericardial effusion is present. CT ABDOMEN: There are multiple enlarged retrocrural lymph nodes present. Multiple periaortic and retr ocaval lymph nodes are present which are enlarged. Iliac chain adenopathy is evident. Liver: Several low-density structures are within the left and right lobes of the liver likely related to hepatic cysts. This would measure 3.3 cm in -1 Hounsfield units in the posterior right mid liver. This measures 1.2 cm and 4 Hounsfield units in the medial left lobe liver. This measures 1.7 and 4 H ounsfield units and 1.9 cm and 2 Hounsfield units adjacent to the ligamentum teres. A 4.5 cm cyst jenifer suring 1 Hounsfield unit is adjacent to ligamentum teres within the medial right lobe liver. Addition al smaller hypodensities may be present more difficult to classify. Hepatomegaly is present. This me asures 27 cm in craniocaudal dimension. Spleen: Normal Pancreas: Atrophic Adrenal glands: The adrenal glands are normal. Gallbladder: Normal Kidneys: No masses are evident. Small perinephric soft tissue densities posterior lateral to the infe rior pole right kidney. Series 201 image 76. No hydronephrosis is present. No cysts are present. D elayed images were obtained through the kidneys, which remain unremarkable. Aorta: Vascular calcification is within the aorta. Inferior vena cava: Normal. CT PELVIS: Subcutaneous edema appears to be present diffusely. Loops of bowel within the abdomen and pelvis are normal. Scattered diverticuli are evident. This s tudy is without oral contrast limiting bowel evaluation. Appendix: Normal as visualized. Urinary bladder: Normal. Genitourinary structures: Uterus is normal. Adnexa are normal. Minimal free fluid is within the pelvi s. Osseous structures: Several sclerotic areas may be within the pelvis. Osseous metastasis is not exclu ded. No suspicious lytic lesions identified. IMPRESSIONS: 1. Developing right upper lobe lung mass. 2. Marked worsening of adenopathy including enlarged mediastinal lymph nodes, subcarinal lymph nodes, periaortic and retrocaval lymph nodes and iliac chain lymphadenopathy. Consider reevaluation with PE T/CT. 3. Stable-appearing hepatic cysts. 4. Hepatomegaly.
[2022-05-25] MEDS ORDERED: diphenhydrAMINE 50 MG/ML 1 ML VIAL IVP STA (12:28)
[2022-05-25] MEDS ORDERED: HYDROmorphone 0.5 MG/0.5 ML SYRINGE IVP STA (12:28)
[2022-05-25] MEDS ORDERED: ONDANSETRON 4 MG/2 ML VIAL IVP PRN (13:58)
[2022-05-25] MEDS ORDERED: NALOXONE 0.4 MG/ML 1 ML VIAL IV PRN (13:58)
[2022-05-25] MEDS ORDERED: HYDROmorphone 0.5 MG/0.5 ML SYRINGE IVP PRN (13:58)
[2022-05-25] MEDS ORDERED: HYDROmorphone 1 MG/ML 1 ML SYRINGE IVP PRN (13:58)
[2022-05-25 15:00] LABS: INR 1.4 (<1.2); Partial Thromboplastin Time 20.4 sec (22.0-30.0); Prothrombin Time 14.4 sec (9.0-12.0)
[2022-05-25] MEDS ORDERED: ALBUTEROL HFA INHALER INHALATION PRN (15:30)
[2022-05-25] MEDS ORDERED: ONDANSETRON 4 MG TAB PO PRN (15:30)
[2022-05-25] MEDS ORDERED: LOPERAMIDE 2 MG CAP PO PRN (15:30)
--- NOTE | 2022-05-25 16:20 | P.HPIM ---
History of Present Illness 71-year-old female came in with complaints of generalized weakness body painspatient was treated for metastatic small cell lung cancer which was diagnosed in 2019 and the patient received chemotherapy and is on active chemo treatment. Patient had a CT of the abdomen and pelvis which showed progression of the disease with increased lymphadenopathy in the paratracheal, carinal and increase the size of the mass in the right upper lung. Patient also has elevated liver enzymes appeared to be dehydrated with elevated serum creatinine low sodium. Patient is admitted for further evaluation by oncology, possible palliative care and hydration. REVIEW OF SYSTEMS: CONSTITUTIONAL: Fatigued, generalized weakness HEENT: No recent visual problems or hearing problems. Denied any sore throat. CARDIOVASCULAR: No chest pain, orthopnea, PND, no palpitations, no syncope. PULMONARY: No shortness of breath, no cough, no hemoptysis. GASTROINTESTINAL: No diarrhea, no nausea, no vomiting, no abdominal pain. NEUROLOGICAL: No headaches, no weakness, no numbness. HEMATOLOGICAL: Denies any bleeding or petechiae. GENITOURINARY: Denies any burning micturition, frequency, or urgency. MUSCULOSKELETAL/RHEUMATOLOGICAL: Denies any joint pain, swelling, or any muscle pain. ENDOCRINE: Denies any polyuria or polydipsia. The rest of the 14-point review of systems is negative. PHYSICAL EXAMINATION: GENERAL: Bit drowsy and sleepy tired HEENT: Pupils are round and equally reacting to light. EOMI. No scleral icterus. No conjunctival pallor. Normocephalic, atraumatic. No pharyngeal erythema. No thyromegaly. CARDIOVASCULAR: S1 and S2 present. No murmurs, rubs, or gallops. PULMONARY: Chest is clear to auscultation, no wheezing or crackles. ABDOMEN: Soft, nontender, nondistended, normoactive bowel sounds. No palpable organomegaly. MUSCULOSKELETAL: No joint swelling or deformity. EXTREMITIES: No cyanosis, clubbing, or pedal edema. NEUROLOGICAL: Gross neurological examination did not reveal any focal deficits. SKIN: No rashes. Assessment and plan -Generalized weakness secondary to dehydration patient was started on IV fluids. -Chronic renal failure secondary to intravascular depletion dehydration IV fluids as mentioned above. Baseline creatinine is around 0.5 -Hypervolemic hyponatremia -Elevated liver enzymes probably secondary to metastatic disease will hold off on statins for now -Hyperlipidemia -Metastatic small cell lung cancer in spite of chemotherapy patient appears to have worsening disease on the repeat CAT scans oncology was consult. Lactic acidosis secondary to severe intravascular volume depletion and dehydration DVT prophylaxis: Subcutaneous heparin Past Medical History Past Medical History: COPD, Hearing Disorder / Deafness, Hyperlipidemia, Hyperte nsion Additional Past Medical History / Comment(s): Sl [place]. Migraines, vertigo. RUL lung mass, Pleural Effusion, cervical lymph nodes enlarged, shortness of breath, edema face/chest/breasts. Muscle cramps BLE, fingers. History of Any Multi-Drug Resistant Organisms: None Reported Past Surgical History: Tonsillectomy Additional Past Surgical History / Comment(s): D&C. Colonoscopy. Lung Biopsy Past Anesthesia/Blood Transfusion Reactions: Family History of Problems w/ A nesthesia Additional Past Anesthesia/Blood Transfusion Reaction / Comment(s): Reaction to Demerol given with colonoscopy. Mother has problems Past Psychological History: No Psychological Hx Reported Smoking Status: Former smoker Past Alcohol Use History: None Reported Past Drug Use History: None Reported - Past Family History Mother Family Medical History: Cancer, Deep Vein Thrombosis (DVT) Additional Family Medical History / Comment(s): kidney cancer Medications and Allergies Home Medications Medication Instructions Recorded Confirmed Type Albuterol Sulfate [Proair Hfa] 2 puff INHALATION RT-Q4H PRN 08/24/19 05/25/22 History Biotin 10,000 mcg PO DAILY 08/24/19 05/25/22 History Cyanocobalamin (Vitamin B-12) 5,000 mcg PO DAILY 08/24/19 05/25/22 History [Vitamin B-12] Fluticasone Propionate [Flonase 1 spr EA NOSTRIL DAILY 08/24/19 05/25/22 History Allergy Relief] Loperamide [Imodium] 2 mg PO QID PRN 08/24/19 05/25/22 History SUMAtriptan succinate [Imitrex] 50 mg PO DAILY PRN 08/24/19 05/25/22 History Simvastatin [Zocor] 20 mg PO HS 08/24/19 05/25/22 History ondansetron HCL [Zofran] 8 mg PO Q8H PRN 09/05/19 05/25/22 History Metoprolol Succinate [Toprol XL] 100 mg PO DAILY 09/07/19 05/25/22 History Folic Acid 1 mg PO DAILY 03/17/21 05/25/22 History Cholecalciferol [Vitamin D3 (25 50 mcg PO DAILY 04/08/22 05/25/22 History Mcg = 1000 Iu)] Prochlorperazine [Compazine] 10 mg PO Q6H PRN 04/08/22 05/25/22 History Topiramate [Topamax] 100 mg PO DAILY 04/08/22 05/25/22 History Nicotine 14Mg/24Hr Patch [Habitrol] 1 patch TRANSDERM DAILY #14 patch 04/10/22 05/25/22 Rx Budesonide/Formoterol Fumarate 1 puff INHALATION RT-BID 05/25/22 05/25/22 History [Symbicort 160-4.5 Mcg Inhaler] Furosemide [Lasix] 40 mg PO DAILY 05/25/22 05/25/22 History Potassium Chloride ER [K-Dur 20] 20 meq PO BID 05/25/22 05/25/22 History Allergies Allergy/AdvReac Type Severity Reaction Status Date / Time meperidine [From Demerol] Allergy Severe Nausea & Verified 05/25/22 10:59 Vomiting codeine Allergy Nausea & Verified 05/25/22 10:59 Vomiting nickel Allergy Rash/Hives Verified 05/25/22 10:59 Physical Exam Vitals: Vital Signs Temp Pulse Resp BP Pulse Ox 05/25/22 10:23 105 H 18 106/76 94 L 05/25/22 09:25 98.3 F 41 L 22 101/60 98 Intake and Output 05/25/22 05/25/22 05/25/22 06:59 14:59 22:59 Other: Weight 73.028 kg Results CBC & Chem 7: 05/25/22 09:41 05/25/22 09:41 Labs: Abnormal Lab Results - Last 24 Hours (Table) 05/25/22 05/25/22 05/25/22 Range/Units 09:41 09:41 09:41 WBC 11.5 H (3.8-10.6) k/uL RDW 18.2 H (11.5-15.5) % Neutrophils # 10.2 H (1.3-7.7) k/uL Lymphocytes # 0.5 L (1.0-4.8) k/uL PT (9.0-12.0) sec INR (<1.2) APTT (22.0-30.0) sec Sodium 135 L (137-145) mmol/L Potassium 5.3 H (3.5-5.1) mmol/L Carbon Dioxide 21 L (22-30) mmol/L BUN 52 H (7-17) mg/dL Creatinine 1.90 H (0.52-1.04) mg/dL Glucose 119 H (74-99) mg/dL Plasma Lactic Acid Serge 3.5 H* (0.7-2.0) mmol/L Magnesium 2.7 H (1.6-2.3) mg/dL Total Bilirubin 4.3 H (0.2-1.3) mg/dL AST 387 H (14-36) U/L ALT 159 H (4-34) U/L Alkaline Phosphatase 478 H (38-126) U/L Total Protein 5.6 L (6.3-8.2) g/dL Albumin 3.1 L (3.5-5.0) g/dL 05/25/22 05/25/22 Range/Units 12:36 14:33 WBC (3.8-10.6) k/uL RDW (11.5-15.5) % Neutrophils # (1.3-7.7) k/uL Lymphocytes # (1.0-4.8) k/uL PT 14.4 H (9.0-12.0) sec INR 1.4 H (<1.2) APTT 20.4 L (22.0-30.0) sec Sodium (137-145) mmol/L Potassium (3.5-5.1) mmol/L Carbon Dioxide (22-30) mmol/L BUN (7-17) mg/dL Creatinine (0.52-1.04) mg/dL Glucose (74-99) mg/dL Plasma Lactic Acid Serge 2.4 H* (0.7-2.0) mmol/L Magnesium (1.6-2.3) mg/dL Total Bilirubin (0.2-1.3) mg/dL AST (14-36) U/L ALT (4-34) U/L Alkaline Phosphatase (38-126) U/L Total Protein (6.3-8.2) g/dL Albumin (3.5-5.0) g/dL
[2022-05-25] MEDS: METOPROLOL SUCCINATE (ER) 100 MG TAB.ER.24H PO SCH (18:18)
[2022-05-25] MEDS: SODIUM CHLORIDE 0.9% 1,000 ML IV SCH (18:36)
[2022-05-25] MEDS: SYMBICORT 160-4.5 MCG INHALER INHALATION SCH (19:23)
[2022-05-25] MEDS: HEPARIN SODIUM,PORCINE/PF 5,000 UNIT/0.5 ML SYRINGE SQ SCH (20:23)
[2022-05-26] MEDS: SODIUM CHLORIDE 0.9% 1,000 ML IV SCH (04:27)
[2022-05-26] MEDS: SYMBICORT 160-4.5 MCG INHALER INHALATION SCH ×3 (07:19→21:15)
[2022-05-26 08:51] LABS: HCT 38.7 % (37.2-46.3); HGB 11.2 g/dL (12.0-15.0); MCH 31.2 pg (27.0-32.0); MCHC 28.9 g/dL (32.0-37.0); MCV 107.8 fL (80.0-97.0); Mean Platelet Volume 11.2 fL (9.5-12.2); NRBC Per 100 WBC 0.3 /100 WBCS (0.0-0.0); Platelet Count 236 X 10*3/uL (140-440); RBC 3.59 X 10*6/uL (4.10-5.20); RDW 19.9 % (11.5-14.5); WBC 13.66 X 10*3/uL (4.50-10.00)
[2022-05-26] MEDS ORDERED: PANTOPRAZOLE 40 MG/10 ML VIAL IV SCH (09:00)
[2022-05-26 09:02] LABS: Magnesium 2.8 mg/dL (1.5-2.4)
[2022-05-26 09:13] LABS: African American GFR (CKD) 19.8 (60.0-200.0); Anion Gap 13.7 mmol/L (10.00-18.00); BUN/Creat Ratio 20.78 Ratio (12.00-20.00); Blood Urea Nitrogen 56.1 mg/dL (9.0-27.0); Calcium 9.7 mg/dL (8.7-10.3); Carbon Dioxide 20.3 mmol/L (20.0-27.5); Potassium 5.5 mmol/L (3.5-5.5)
[2022-05-26] MEDS ORDERED: FUROSEMIDE 10 MG/ML 4 ML VIAL IV STA (09:36)
[2022-05-26] MEDS: FOLIC ACID 1 MG TAB PO SCH (10:15)
[2022-05-26] MEDS: TOPIRAMATE 100 MG TAB PO SCH (10:16)
[2022-05-26] MEDS: METOPROLOL SUCCINATE (ER) 100 MG TAB.ER.24H PO SCH (10:16)
[2022-05-26] MEDS: NICOTINE 14MG/24HR PATCH TRANSDERM SCH (10:22)
[2022-05-26] MEDS: HEPARIN SODIUM,PORCINE/PF 5,000 UNIT/0.5 ML SYRINGE SQ SCH ×2 (10:22→20:19)
--- NOTE | 2022-05-26 15:58 | P.CONS ---
History of Present Illness - Reason for Consult Consult date: 05/26/22 Goals of care Requesting physician: Cierra Parikh - Chief Complaint Weakness - History of Present Illness Patient is a 72-year-old female with a past medical history significant for COPD, hyperlipidemia, hypertension, migraines, small cell lung cancer diagnosed in 2019 with metastases to the brain, [place], and pleural effusions. The patient has received both chemotherapy and radiation therapy. Last radiation treatment was 04/23/22 last chemotherapy was a couple months ago. He presented to the emergency department on 05/25/22 with weakness and generalized pain. Her w eakness has gotten progressively worse over the last month. Review of Systems Constitutional: Reports fatigue, Denies chills, Denies fever Cardiovascular: Denies palpitations, Denies shortness of breath Gastrointestinal: Reports diarrhea, Reports nausea, Denies vomiting Past Medical History Past Medical History: COPD, Hearing Disorder / Deafness, Hyperlipidemia, Hype rtension Additional Past Medical History / Comment(s): Sl [place]. Migraines, vertigo. RUL lung mass, Pleural Effusion, cervical lymph nodes enlarged, shortness of breath, edema face/chest/breasts. Muscle cramps BLE, fingers. History of Any Multi-Drug Resistant Organisms: None Reported Past Surgical History: Tonsillectomy Additional Past Surgical History / Comment(s): D&C. Colonoscopy. Lung Biopsy Past Anesthesia/Blood Transfusion Reactions: Family History of Problems w/ Anesthesia Additional Past Anesthesia/Blood Transfusion Reaction / Comm: Reaction to Demerol given with colonoscopy. Mother has problems Past Psychological History: No Psychological Hx Reported Smoking Status: Former smoker Past Alcohol Use History: None Reported Additional Past Alcohol Use History / Comment(s): Smoking since 1969, was 2 ppd, now 1 ppd Past Drug Use History: None Reported - Past Family History Mother Family Medical History: Cancer, Deep Vein Thrombosis (DVT) Additional Family Medical History / Comment(s): kidney cancer Medications and Allergies Home Medications Medication Instructions Recorded Confirmed Type Albuterol Sulfate [Proair Hfa] 2 puff INHALATION RT-Q4H PRN 08/24/19 05/25/22 History Biotin 10,000 mcg PO DAILY 08/24/19 05/25/22 History Cyanocobalamin (Vitamin B-12) 5,000 mcg PO DAILY 08/24/19 05/25/22 History [Vitamin B-12] Fluticasone Propionate [Flonase 1 spr EA NOSTRIL DAILY 08/24/19 05/25/22 History Allergy Relief] Loperamide [Imodium] 2 mg PO QID PRN 08/24/19 05/25/22 History SUMAtriptan succinate [Imitrex] 50 mg PO DAILY PRN 08/24/19 05/25/22 History Simvastatin [Zocor] 20 mg PO HS 08/24/19 05/25/22 History ondansetron HCL [Zofran] 8 mg PO Q8H PRN 09/05/19 05/25/22 History Metoprolol Succinate [Toprol XL] 100 mg PO DAILY 09/07/19 05/25/22 History Folic Acid 1 mg PO DAILY 03/17/21 05/25/22 History Cholecalciferol [Vitamin D3 (25 50 mcg PO DAILY 04/08/22 05/25/22 History Mcg = 1000 Iu)] Prochlorperazine [Compazine] 10 mg PO Q6H PRN 04/08/22 05/25/22 History Topiramate [Topamax] 100 mg PO DAILY 04/08/22 05/25/22 History Nicotine 14Mg/24Hr Patch [Habitrol] 1 patch TRANSDERM DAILY #14 patch 04/10/22 05/25/22 Rx Budesonide/Formoterol Fumarate 1 puff INHALATION RT-BID 05/25/22 05/25/22 History [Symbicort 160-4.5 Mcg Inhaler] Furosemide [Lasix] 40 mg PO DAILY 05/25/22 05/25/22 History Potassium Chloride ER [K-Dur 20] 20 meq PO BID 05/25/22 05/25/22 History Allergies Allergy/AdvReac Type Severity Reaction Status Date / Time meperidine [From Demerol] Allergy Severe Nausea & Verified 05/25/22 10:59 Vomiting codeine Allergy Nausea & Verified 05/25/22 10:59 Vomiting nickel Allergy Rash/Hives Verified 05/25/22 10:59 Physical Exam Vitals: Vital Signs Temp Pulse Pulse Pulse Resp BP BP 05/26/22 11:37 98.0 F 110 H 20 05/26/22 10:44 05/26/22 09:42 112 H 05/26/22 07:31 98.3 F 114 H 16 84/52 05/26/22 02:00 97.4 F L 107 H 20 95/67 05/25/22 20:00 20 05/25/22 19:35 97.9 F 107 H 20 103/69 05/25/22 17:00 94 18 95/62 05/25/22 16:00 95 16 90/63 BP BP Pulse Ox 05/26/22 11:37 82/59 97 05/26/22 10:44 81/55 05/26/22 09:42 92/62 95 05/26/22 07:31 89/56 90 L 05/26/22 02:00 92 L 05/25/22 20:00 05/25/22 19:35 91 L 05/25/22 17:00 91 L 05/25/22 16:00 92 L Intake and Output 05/26/22 05/26/22 05/26/22 06:59 14:59 22:59 Intake Total 1200 Balance 1200 Intake: Intake, IV Titration 1200 Amount Sodium Chloride 0.9% 1, 1200 000 ml @ 100 mls/hr IV . Q10H [facility] Rx#:[id number] Oral 0 Other: Voiding Method External Catheter # Voids 0 General: Well developed, well nourished. Chronically ill appearing. HEENT: Head is atraumatic, normocephalic. CV: S1 and S2 present, 1+ generalized edema Lungs: Diminished throughout respirations labored, on nonrebreather mask. Abdomen/GI: Soft. .No guarding, rigidity, or abdominal tenderness. : No suprapubic tenderness. External catheter present draining clear yellow urine Skin: Warm and dry, No rash or lesions. Neurologic: Lethargic, unable to assess Results CBC & Chem 7: 05/26/22 04:00 05/26/22 04:00 Labs: Abnormal Lab Results - Last 24 Hours (Table) 05/26/22 05/26/22 Range/Units 04:00 04:00 WBC 13.66 H (4.50-10.00) X 10*3/uL RBC 3.59 L (4.10-5.20) X 10*6/uL Hgb 11.2 L (12.0-15.0) g/dL MCV 107.8 H (80.0-97.0) fL MCHC 28.9 L (32.0-37.0) g/dL RDW 19.9 H (11.5-14.5) % Absolute Nucleated RBC 0.04 H (0.00-0.00) X 10*3/uL NRBC/100 WBC Diff 0.3 H (0.0-0.0) /100 WBCS BUN 56.1 H (9.0-27.0) mg/dL Creatinine 2.7 H (0.6-1.5) mg/dL Est GFR (CKD-EPI)AfAm 19.8 L (60.0-200.0) Est GFR (CKD-EPI)NonAf 17.0 L (60.0-200.0) BUN/Creatinine Ratio 20.78 H (12.00-20.00) Ratio Magnesium 2.8 H (1.5-2.4) mg/dL Chest x-ray: report reviewed CT scan - chest: report reviewed CT scan - pelvis: report reviewed Assessment and Plan Assessment: Social * Occupation - part-time employed, for [employer] * Marital status - to , Sherwin, for 46 years * Children/grandchildren - 3 adult children * Residence - house * Who do you reside with - * ETOH - no * Tobacco - current smoker * Illicit drugs - no Spiritual/Cultural * A spiritual person - somewhat * 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 [employer] * Belong to a particular mormonism - not actively practicing Functional Assessment * Able to walk independently - no * Assistive devices - walker and 1 person assist * Able to use the bathroom independently - no * Continent - yes * Require assistance bathing- yes * Able to feed self - yes * Who prepares meals - * Able to clean house/do laundry - no * Transportation - * Able to shop - no * Who manages medications - * Who manages finances - * Psychological/Emotional * Dementia present - unable to assess * Insight and judgment - not intact * Depression - unable to assess * Suicidal thoughts - unable to assess * Good support system - yes * Patients goals - prolonged survival - her yes * Desire to keep coming back to the hospital for treatment - Symptoms * Pain - continue Dilaudid, Ofirmev added prn pain * Fatigue - * SOB - patient on nonrebreather, continue albuterol, Symbicort and nicotine patch * Insomnia - no * N/V - occasional, continue Zofran * Anxiety - PAOLA * Depression - PAOLA * Confusion - Yes * Agitation - No * Hallucinations - No * Appetite/weight loss - decreased appetite, no recent weight loss, continue renal diet * Dysphagia - No * Constipation - No * Incontinence - Yes, external catheter in place * Itch - No * Cough - No Plan: Summary/Goals - The patient was lying in bed and moaning in pain. Her , Sherwin, is at the bedside. She is hypotensive and unable to tolerate Dilaudid. The patient's states that she uses Motrin at home for pain. Unfortunately Motrin cannot be ordered to creatinine level. Ofirmev added for pain. Information provided regarding palliative care philosophies and services. He states that he missed oncology today when they rounded and did not get to speak with them. He is unsure what their treatment plan is, or if there is one. [employer] Amaya Love text and notified that the patient's is requesting an update. He stated that he cannot make any decisions regarding her goals of care until he speaks with oncology. He understands the patient's progression of her cancer. The patient is very lethargic and is only able to answer occasional questions. Recommendations - hospice Advanced Directives - none on file Code Status - full code with instructions, DO NOT INTUBATE Thank you for this consultation Dorothea Taylor [facility] [id number] Email: [email or web address] Time with Patient: Greater than 30
--- NOTE | 2022-05-26 16:00 | XR ---
EXAMINATION TYPE: XR chest 1V portable DATE OF EXAM: 05/26/2022 Comparison: 04/08/2022 Clinical History: 72-year-old female shortness of breath Findings: Right heart margin obscured by adjacent pleural parenchymal opacity. There is at least a moderate rig ht pleural effusion with underlying opacity extending to the upper third right lung level. Left lung and pleural space appear relatively clear. Impression: Right heart margin obscured by at least a moderate right pleural effusion with extensive adjacent ate lectasis and/or consolidation. Correlate as to etiology. Possible combination of collapse and mass involving the medial right upper lobe not as well appreciat ed radiographically.
[2022-05-26] MEDS: ACETAMINOPHEN IV (For NPO) 1,000 MG in EMPTY BAG 1 BAG IVPB PRN ×2 (16:48→23:57)
[2022-05-26] MEDS ORDERED: DEXTROSE 5%-0.9% NACL 1,000 ML IV SCH (18:30)
--- NOTE | 2022-05-26 18:47 | P.CONS ---
History of Present Illness - Reason for Consult Consult date: 05/26/22 metastatic lung cancer Requesting physician: Jen Blake - Chief Complaint weakness, pain, small cell lung carcinoma - History of Present Illness Mrs. Julian is a pleasant 71-year-old female pt of Dr. Titi Turner, presented to the ER for generalized weakness and body pain. She is not very responsive/interactive, unable to get much info from pt, no family was there whe n seen. She has hx of metastatic small cell lung carcinoma which was diagnosed in 2019-see below for malign Hx. Currently pending ins approval of zepzelca. CT AP showed disease progression with developing RUL mass, increased lymphadenopathy in the medistinal, subcarinal and periaortic lymph nodes, hepatomegaly noted. BUN/Cr significantly elevated, at baseline her renal function is normal. Oncology history: 06/29 pt had a CXR, there was RUL mass seen, CT showed pulmonary mass in the right mid lung field extending into the right hilum 2.6 x 2.2 cm, mediastinal mass on the right extending into the right suprahilar and peritracheal regions 5.7 x 6.3 x 6.3 cm, constriction of the SVC, also multiple indeterminate lesions in the liver. Stagin PET 07/31/19 showed increased SUV and all of the aforementioned areas including bilateral supraclavicular lymph nodes, suspicions for bony metastatic disease. Dr. Benson did a transbronchial biopsy on 08/25/19, small cell lung carcinoma. Radiation initiated for symptomatic SVC syndrome with Dr. Regan. She had an MRI of the brain 08/30/19. 1.3 cm dural based lesion in the right occipital area identified. Chemo/IO was started-carbo/[employer]/tecentric. Oligometastatic brain met was treated inbetween chemo. Pt completed chemo, cont on tecentric and did well, unitl 08/28, MRI showed diffuse brain mets, received WBRT. Tx changed to Hycamtin. Had XRT right hip bone lesion. Did well until 03/31, MRI of head showed slight progression, further XRT planned by Dr Saeed, she received SBRT to multiple brain lesions. CT chest had questionable progression, repeat MRI of brain revealed further progression, XRT provided. PET Scan showed definite systemic progression end of Mar 2022. Plans for Zepzelca, however, pt unable to afford medication, awaiting tx initiation while to find assistance for treatment. Recently started on Lasix around 05/13 for c/o BLE swelling, limited Rx. Pt was seen by Rad Onc who communicated with us that pt was requesting some more lasix late last week, 5 day script provided-with potassium supplement. Review of Systems ROS unobtainable: due to mental status Past Medical History Past Medical History: Cancer, COPD, Hearing Disorder / Deafness, Hyperlipidemia, Hypertension, Seizure Disorder Additional Past Medical History / Comment(s): Sl [place]. Migraines, vertigo. RUL lung mass, Pleural Effusion, cervical lymph nodes enlarged, shortness of breath, edema face/chest/breasts. Muscle cramps BLE, fingers. History of Any Multi-Drug Resistant Organisms: None Reported Past Surgical History: Tonsillectomy Additional Past Surgical History / Comment(s): D&C. Colonoscopy. Lung Biopsy Past Anesthesia/Blood Transfusion Reactions: Family History of Problems w/ Anesthesia Additional Past Anesthesia/Blood Transfusion Reaction / Comm: Reaction to Demerol given with colonoscopy. Mother has problems Past Psychological History: No Psychological Hx Reported Smoking Status: Former smoker Past Alcohol Use History: None Reported Additional Past Alcohol Use History / Comment(s): Smoking since 1969, was 2 ppd, now 1 ppd Past Drug Use History: None Reported - Past Family History Mother Family Medical History: Cancer, Deep Vein Thrombosis (DVT) Additional Family Medical History / Comment(s): kidney cancer Medications and Allergies Home Medications Medication Instructions Recorded Confirmed Type Albuterol Sulfate [Proair Hfa] 2 puff INHALATION RT-Q4H PRN 08/24/19 05/25/22 History Biotin 10,000 mcg PO DAILY 08/24/19 05/25/22 History Cyanocobalamin (Vitamin B-12) 5,000 mcg PO DAILY 08/24/19 05/25/22 History [Vitamin B-12] Fluticasone Propionate [Flonase 1 spr EA NOSTRIL DAILY 08/24/19 05/25/22 History Allergy Relief] Loperamide [Imodium] 2 mg PO QID PRN 08/24/19 05/25/22 History SUMAtriptan succinate [Imitrex] 50 mg PO DAILY PRN 08/24/19 05/25/22 History Simvastatin [Zocor] 20 mg PO HS 08/24/19 05/25/22 History ondansetron HCL [Zofran] 8 mg PO Q8H PRN 09/05/19 05/25/22 History Metoprolol Succinate [Toprol XL] 100 mg PO DAILY 09/07/19 05/25/22 History Folic Acid 1 mg PO DAILY 03/17/21 05/25/22 History Cholecalciferol [Vitamin D3 (25 50 mcg PO DAILY 04/08/22 05/25/22 History Mcg = 1000 Iu)] Prochlorperazine [Compazine] 10 mg PO Q6H PRN 04/08/22 05/25/22 History Topiramate [Topamax] 100 mg PO DAILY 04/08/22 05/25/22 History Nicotine 14Mg/24Hr Patch [Habitrol] 1 patch TRANSDERM DAILY #14 patch 04/10/22 05/25/22 Rx Budesonide/Formoterol Fumarate 1 puff INHALATION RT-BID 05/25/22 05/25/22 History [Symbicort 160-4.5 Mcg Inhaler] Furosemide [Lasix] 40 mg PO DAILY 05/25/22 05/25/22 History Potassium Chloride ER [K-Dur 20] 20 meq PO BID 05/25/22 05/25/22 History Allergies Allergy/AdvReac Type Severity Reaction Status Date / Time meperidine [From Demerol] Allergy Severe Nausea & Verified 05/25/22 10:59 Vomiting codeine Allergy Nausea & Verified 05/25/22 10:59 Vomiting nickel Allergy Rash/Hives Verified 05/25/22 10:59 Physical Exam Vitals: Vital Signs Temp Pulse Pulse Pulse Resp BP BP 05/26/22 11:37 98.0 F 110 H 20 05/26/22 10:44 05/26/22 09:42 112 H 05/26/22 07:31 98.3 F 114 H 16 84/52 05/26/22 02:00 97.4 F L 107 H 20 95/67 05/25/22 20:00 20 05/25/22 19:35 97.9 F 107 H 20 103/69 05/25/22 17:00 94 18 95/62 05/25/22 16:00 95 16 90/63 BP BP Pulse Ox 05/26/22 11:37 82/59 97 05/26/22 10:44 81/55 05/26/22 09:42 92/62 95 05/26/22 07:31 89/56 90 L 05/26/22 02:00 92 L 05/25/22 20:00 05/25/22 19:35 91 L 05/25/22 17:00 91 L 05/25/22 16:00 92 L Intake and Output 05/26/22 05/26/22 05/26/22 06:59 14:59 22:59 Intake Total 1200 Balance 1200 Intake: Intake, IV Titration 1200 Amount Sodium Chloride 0.9% 1, 1200 000 ml @ 100 mls/hr IV . Q10H [facility] Rx#:[id number] Oral 0 Other: Voiding Method External Catheter # Voids 0 - Constitutional look frail General appearance: no acute distress, obese - EENT Eyes: anicteric sclerae ENT: hearing grossly normal - Neck Neck: no lymphadenopathy - Respiratory Respiratory: bilateral: rhonchi - Cardiovascular Rhythm: regular Heart sounds: normal: S1, S2 Abnormal Heart Sounds: no systolic murmur, no diastolic murmur, no rub, no S3 Gallop, no S4 Gallop, no click, no other leg Peripheral Edema: bilateral: 3+ - Gastrointestinal General gastrointestinal: hepatomegaly, soft - Integumentary Integumentary: normal - Neurologic grossly intact Neurologic: CNII-XII intact - Psychiatric arousable but lethargic Results CBC & Chem 7: 05/26/22 04:00 05/26/22 04:00 Labs: Abnormal Lab Results - Last 24 Hours (Table) 05/26/22 05/26/22 Range/Units 04:00 04:00 WBC 13.66 H (4.50-10.00) X 10*3/uL RBC 3.59 L (4.10-5.20) X 10*6/uL Hgb 11.2 L (12.0-15.0) g/dL MCV 107.8 H (80.0-97.0) fL MCHC 28.9 L (32.0-37.0) g/dL RDW 19.9 H (11.5-14.5) % Absolute Nucleated RBC 0.04 H (0.00-0.00) X 10*3/uL NRBC/100 WBC Diff 0.3 H (0.0-0.0) /100 WBCS BUN 56.1 H (9.0-27.0) mg/dL Creatinine 2.7 H (0.6-1.5) mg/dL Est GFR (CKD-EPI)AfAm 19.8 L (60.0-200.0) Est GFR (CKD-EPI)NonAf 17.0 L (60.0-200.0) BUN/Creatinine Ratio 20.78 H (12.00-20.00) Ratio Magnesium 2.8 H (1.5-2.4) mg/dL Chest x-ray: report reviewed CT scan - abdomen: report reviewed CT scan - chest: report reviewed CT scan - pelvis: report reviewed Assessment and Plan (1) Small cell lung carcinoma Current Visit: Yes Status: Chronic Priority: High Code(s): C34.90 - MALIGNANT NEOPLASM OF UNSP PART OF UNSP BRONCHUS OR LUNG SNOMED Code(s): 169426642 Plan: Small cell lung carcinoma: -Pt currently not on active treatment because of insurance. Last chemo 04/01/22. -Palliative care consulted, they have recommended hospice -Family meeting planned for AM to discuss goals of care, pt and family wishes ARF, 3rd spacing, anuria per nursing -Baseline BUN/Cr are normal. She has been c/o of BLE edema for 3 weeks. She was given short Rx of lasix on 2 occasions in the last 3 weeks. Suspect some degree of dehydration based on labs. Fluids were held due to concerns for fluid overload. CT and CXR reports reviewed. Rt lung mass, pl effusion, lt lung relatively clear. Did order D5.9 at 50cc/hr for ARF. Attests: I have seen and examined pt, performed H&P, developed impression and plan of care. Discussed with dictator. Agree with documentation, dictated as a scribe.
[2022-05-27 01:41] VITALS: RESP 18
--- NOTE | 2022-05-27 03:20 | P.PN ---
Subjective Progress Note Date: 05/26/22 71-year-old female came in with complaints of generalized weakness body painspatient was treated for metastatic small cell lung cancer which was diagnosed in 2019 and the patient received chemotherapy and is on active chemo treatment. Patient had a CT of the abdomen and pelvis which showed progression of the disease with increased lymphadenopathy in the paratracheal, carinal and increase the size of the mass in the right upper lung. Patient also has elevated liver enzymes appeared to be dehydrated with elevated serum creatinine low sodium. Patient is admitted for further evaluation by oncology, possible palliative care and hydration. 05/26/2022 Patient is seen and evaluated in follow-up this morning and has been maintained on hydration overnight and lung sounds appear wet inpatient extremely dyspneic with low oxygen saturations currently maintained on 15 L nonrebreather will give a dose of Lasix to see if any improvement. Patient has not had any urine output is well and is not eating or drinking. Patient minimally responsive although this morning in pain. Patient also extremely hypotensive. Palliative care consult was placed and discussing possible hospice. Spouses unsure at this time and would like follow-up with oncology to discuss overall prognosis. Adenosis is extremely poor and guarded at this time. Patient has had disease progression with no significant improvement. Patient's kidney functions also worsened and will consult nephrology. Patient is currently afebrile will obtain chest x-ray. REVIEW OF SYSTEMS: Unable to obtain as patient is extremely lethargic today Active Medications Albuterol Sulfate (Albuterol Hfa Inhaler) 2 puff INHALATION RT-Q4H PRN PRN Reason: Shortness Of Breath Budesonide/Formoterol Fumarate (Symbicort 160-4.5 Mcg Inhaler) 1 puff INHALATION RT-BID [facility] Last Admin: 05/26/22 21:15 Dose: 1 puff Folic Acid (Folic Acid 1 Mg Tab) 1 mg PO DAILY [facility] Last Admin: 05/26/22 10:15 Dose: Not Given Heparin Sodium (Porcine) (Heparin Sodium,Porcine/Pf 5,000 Unit/0.5 Ml Syringe) 5,000 unit SQ Q12HR [facility] Last Admin: 05/26/22 20:19 Dose: 5,000 unit Hydromorphone HCl (Hydromorphone 0.5 Mg/0.5 Ml Syringe) 0.5 mg IVP Q3HR PRN PRN Reason: Moderate Pain (Scale 4 to 6) Acetaminophen 1,000 mg/ IV (Solution) 100 mls @ 400 mls/hr IVPB Q6HR PRN PRN Reason: Pain Stop: 05/27/22 12:01 Last Admin: 05/26/22 23:57 Dose: 400 mls/hr Dextrose/Sodium Chloride (Dextrose 5%-Ns Iv Soln) 1,000 mls @ 50 mls/hr IV .Q20H [facility] Last Admin: 05/26/22 18:56 Dose: 50 mls/hr Loperamide HCl (Loperamide 2 Mg Cap) 2 mg PO QID PRN PRN Reason: Diarrhea Metoprolol Succinate (Metoprolol Succinate (Er) 100 Mg Tab.Er.24h) 100 mg PO DAILY [facility] Last Admin: 05/26/22 10:16 Dose: Not Given Naloxone HCl (Naloxone 0.4 Mg/Ml 1 Ml Vial) 0.2 mg IV Q2M PRN PRN Reason: Opioid Reversal Nicotine (Nicotine 14mg/24hr Patch) 1 patch TRANSDERM DAILY [facility] Last Admin: 05/26/22 10:22 Dose: 1 patch Ondansetron HCl (Ondansetron 4 Mg/2 Ml Vial) 4 mg IVP Q8HR PRN PRN Reason: Nausea And Vomiting Ondansetron HCl (Ondansetron 4 Mg Tab) 8 mg PO Q8H PRN PRN Reason: Nausea Pantoprazole Sodium (Pantoprazole 40 Mg Tablet) 40 mg PO AC-BRKFST [facility] Topiramate (Topiramate 100 Mg Tab) 100 mg PO DAILY [facility] Last Admin: 05/26/22 10:16 Dose: Not Given PHYSICAL EXAMINATION: GENERAL: Bit drowsy and sleepy tired, arousable but extremely lethargic HEENT: Pupils are round and equally reacting to light. EOMI. No scleral icterus. No conjunctival pallor. Normocephalic, atraumatic. No pharyngeal erythema. No thyromegaly. CARDIOVASCULAR: S1 and S2 present. No murmurs, rubs, or gallops. PULMONARY: Diminished breath sounds bilaterally with rhonchi and crackles noted more so on the right ABDOMEN: Soft, nontender, nondistended, normoactive bowel sounds. No palpable organomegaly. MUSCULOSKELETAL: No joint swelling or deformity. EXTREMITIES: No cyanosis, clubbing, or pedal edema. NEUROLOGICAL: Unable to completely assess as patient is lethargic and moaning out SKIN: No rashes. Assessment: -Generalized weakness secondary to dehydration patient was started on IV fluids. -Chronic renal failure secondary to intravascular depletion dehydration IV fluids as mentioned above. Baseline creatinine is around 0.5 -Hypervolemic hyponatremia -Elevated liver enzymes probably secondary to metastatic disease will hold off on statins for now -Hyperlipidemia -Metastatic small cell lung cancer in spite of chemotherapy patient appears to have worsening disease on the repeat CAT scans, oncology following -Lactic acidosis secondary to severe intravascular volume depletion and dehydration -DVT prophylaxis: Subcutaneous heparin Plan: Recommend to continue with current medications and management with oncology following. Palliative care consult placed recommending hospice and family would like to discuss further with oncology about treatment plan moving forward Patient extremely dyspneic now currently maintained on 15 L nonrebreather continues to be short of breath. Chest x-ray ordered and pending. A dose of Lasix was given to see if any improvement as patient is also not having any urine output. Patient is not eating or drinking showing clinical impression of decline and disease progression. Strongly recommend hospice and comfort measures with overall poor prognosis Kidney functions trending up with no urine output being started on D5 0.9 and have consulted nephrology and appreciate input and recommendations. Recommend repeat labs in the a.m. Again overall prognosis remains extremely poor and guarded at this time. The impression and plan of care has been dictated by Cierra Parikh, Nurse Practitioner as directed. Dr. Jonny MD I have performed a history and examination and MDM of this patient, discussed the same with the dictator, and agree with the dictator's assessment and plan as written ,documented as a scribe. Based on total visit time, I have performed more than 50% of the visit. Objective - Vital Signs Vital signs: Vital Signs Temp 97.6 F 05/27/22 01:22 Pulse 116 H 05/27/22 01:22 Resp 18 05/27/22 01:22 BP 93/60 05/27/22 01:22 Pulse Ox 90 L 05/27/22 01:22 FiO2 100 05/26/22 21:15 Intake & Output 05/26/22 05/26/22 05/27/22 06:59 18:59 06:59 Intake Total 1200 100 Output Total 139 Balance 1200 -39 Weight 73.028 kg Intake: Intake, IV Titration 1200 100 Amount ACETAMINOPHEN IV (For NPO 100 ) 1,000 mg In Empty Bag 1 bag @ 400 mls/hr IVPB Q6HR PRN Rx#:[id number] Sodium Chloride 0.9% 1, 1200 000 ml @ 100 mls/hr IV . Q10H [facility] Rx#:[id number] Oral 0 Output: Post Void Residual 139 Other: Voiding Method External Catheter External Catheter External Catheter # Voids 0 - Labs CBC & Chem 7: 05/26/22 04:00 05/26/22 04:00 Labs: Abnormal Lab Results - Last 24 Hours (Table) 05/26/22 05/26/22 Range/Units 04:00 04:00 WBC 13.66 H (4.50-10.00) X 10*3/uL RBC 3.59 L (4.10-5.20) X 10*6/uL Hgb 11.2 L (12.0-15.0) g/dL MCV 107.8 H (80.0-97.0) fL MCHC 28.9 L (32.0-37.0) g/dL RDW 19.9 H (11.5-14.5) % Absolute Nucleated RBC 0.04 H (0.00-0.00) X 10*3/uL NRBC/100 WBC Diff 0.3 H (0.0-0.0) /100 WBCS BUN 56.1 H (9.0-27.0) mg/dL Creatinine 2.7 H (0.6-1.5) mg/dL Est GFR (CKD-EPI)AfAm 19.8 L (60.0-200.0) Est GFR (CKD-EPI)NonAf 17.0 L (60.0-200.0) BUN/Creatinine Ratio 20.78 H (12.00-20.00) Ratio Magnesium 2.8 H (1.5-2.4) mg/dL
[2022-05-27 06:59] LABS: Anisocytosis Slight; HCT 37.6 % (34.0-46.0); HGB 11.5 gm/dL (11.4-16.0); Hypochromasia Moderate; MCH 31.6 pg (25.0-35.0); MCHC 30.6 g/dL (31.0-37.0); MCV 103.4 fL (80.0-100.0); Macrocytosis Moderate; Mean Platelet Volume 8.6; Platelet Count 213 k/uL (150-450); RBC 3.63 m/uL (3.80-5.40); RDW 18.4 % (11.5-15.5)
[2022-05-27 07:14] LABS: African American GFR (CKD) 14 (>60 ml/min/1.73 sqM); Anion Gap 15 mmol/L; Blood Urea Nitrogen 71 mg/dL (7-17); Calcium 9.1 mg/dL (8.4-10.2); Carbon Dioxide 14 mmol/L (22-30); Chloride 110 mmol/L (98-107); Glucose 122 mg/dL (74-99); Non-African American GFR(CKD) 12 (>60 ml/min/1.73 sqM); Potassium 5.7 mmol/L (3.5-5.1); Sodium 139 mmol/L (137-145)
[2022-05-27] MEDS: SYMBICORT 160-4.5 MCG INHALER INHALATION SCH (07:23)
[2022-05-27] MEDS ORDERED: PANTOPRAZOLE 40 MG TABLET PO SCH (07:30)
[2022-05-27 07:35] VITALS: BP 91/62; PULSE 110; TEMP 97.8
[2022-05-27] MEDS: METOPROLOL SUCCINATE (ER) 100 MG TAB.ER.24H PO SCH (08:43)
[2022-05-27] MEDS: FOLIC ACID 1 MG TAB PO SCH (08:43)
[2022-05-27] MEDS: HEPARIN SODIUM,PORCINE/PF 5,000 UNIT/0.5 ML SYRINGE SQ SCH (08:44)
[2022-05-27] MEDS: NICOTINE 14MG/24HR PATCH TRANSDERM SCH (08:44)
[2022-05-27] MEDS: TOPIRAMATE 100 MG TAB PO SCH (08:45)
[2022-05-27] MEDS: ACETAMINOPHEN IV (For NPO) 1,000 MG in EMPTY BAG 1 BAG IVPB PRN (08:53)
--- NOTE | 2022-05-27 10:50 | P.PN ---
Subjective Progress Note Date: 05/27/22 Principal diagnosis: Metastatic Small cell lung cancer Patient is a 72-year-old female with a past medical history significant for COPD, hyperlipidemia, hypertension, migraines, small cell lung cancer diagnosed in 2019 with metastases to the brain, [place], and pleural effusions. The patient has received both chemotherapy and radiation therapy. Last radiation treatment was 04/23/22 last chemotherapy was a couple months ago. He presented to the emergency department on 05/25/22 with weakness and generalized pain. Her weakness has gotten progressively worse over the last month. 05/26 The patient was lying in bed and moaning in pain. Her , Sherwin, is at the bedside. She is hypotensive and unable to tolerate Dilaudid. The patient's states that she uses Motrin at home for pain. Unfortunately Motrin cannot be ordered to creatinine level. Ofirmev added for pain. Information provided regarding palliative care philosophies and services. He states that he missed oncology today when they rounded and did not get to speak with them. He is unsure what their treatment plan is, or if there is one. MORE Conde Love text and notified that the patient's is requesting an update. He stated that he cannot make any decisions regarding her goals of care until he speaks with oncology. He understands the patient's progression of her cancer. The patient is very lethargic and is only able to answer occasional questions. Objective - Vital Signs Vital signs: Vital Signs Temp 97.8 F 05/27/22 07:15 Pulse 110 H 05/27/22 07:15 Resp 18 05/27/22 07:15 BP 91/62 05/27/22 07:15 Pulse Ox 98 05/27/22 07:15 FiO2 100 05/26/22 21:15 Intake & Output 05/26/22 05/27/22 05/27/22 18:59 06:59 18:59 Intake Total 100 Output Total 139 Balance -39 Intake: Intake, IV Titration 100 Amount ACETAMINOPHEN IV (For NPO 100 ) 1,000 mg In Empty Bag 1 bag @ 400 mls/hr IVPB Q6HR PRN Rx#:[id number] Output: Post Void Residual 139 Other: Voiding Method External Catheter External Catheter External Catheter # Voids 1 1 - Exam General: Well developed, well nourished. Chronically ill appearing. HEENT: Head is atraumatic, normocephalic. CV: S1 and S2 present, 1+ generalized edema Lungs: Scattered rhonchi throughout, on 15 L high flow nasal cannula Abdomen/GI: Soft. No guarding, rigidity, or abdominal tenderness. : External catheter present draining clear yellow urine Skin: Warm and dry, Neurologic: Lethargic, unable to assess - Labs CBC & Chem 7: 05/27/22 06:31 05/27/22 06:31 Labs: Abnormal Lab Results - Last 24 Hours (Table) 05/27/22 05/27/22 Range/Units 06:31 06:31 RBC 3.63 L (3.80-5.40) m/uL MCV 103.4 H (80.0-100.0) fL MCHC 30.6 L (31.0-37.0) g/dL RDW 18.4 H (11.5-15.5) % Potassium 5.7 H (3.5-5.1) mmol/L Chloride 110 H (98-107) mmol/L Carbon Dioxide 14 L (22-30) mmol/L BUN 71 H (7-17) mg/dL Creatinine 3.65 H (0.52-1.04) mg/dL Glucose 122 H (74-99) mg/dL Assessment and Plan Assessment: Received phone call from oncology [employer] stating that they have met with the patient's and would like to make the patient GIP. The patient is less r esponsive today. She will occasionally open her eyes briefly to physical stimulation. She appears uncomfortable and short of breath. Patient's states that he understands the progression of his 's cancer and prognosis. He would like to make his as comfortable as possible for what time she has remaining. Emotional support provided. Hospice team notified. Plan: Summary/Goals - The patient's has decided on inpatient hospice. The hospice team has been notified. Recommendations - inpatient hospice Advanced Directives - none on file Code Status -DO NOT RESUSCITATE Thank you for this consultation Dorothea Taylor [facility] Palliative [facility] [id number] Email: [email or web address] Time with Patient: Greater than 30
[2022-05-27] MEDS ORDERED: DEXTROSE 5% IN WATER 1,000 ML with SODIUM BICARB (1 MEQ/ML) 150 ML IV SCH (11:00)
--- NOTE | 2022-05-27 11:35 | P.NPCON ---
History of Present Illness - Reason for Consult acute renal failure - History of Present Illness Patient is a 71-year-old female who was admitted to the hospital with decreased mentation. 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 She has been on chemotherapy and radiation therapy. Patient was admitted to the hospital with complaints of increased weakness and generalized pain which has progressively been getting worse. Serum creatinine was 1.9 on admission and increased to 3.65 today. Patient is noted to be hypotensive. CO2 is down to 14 this morning with potassium was 5.7. Patient has an external catheter and urine output is not actually charted. Systolic blood pressure has been in the 90s. Patient is not communicating. Review of Systems As per HPI Past Medical History Past Medical History: Cancer, COPD, Hearing Disorder / Deafness, Hyperlipidemia, Hypertension, Seizure Disorder Additional Past Medical History / Comment(s): Sl CARMELO. Migraines, vertigo. RUL lung mass, Pleural Effusion, cervical lymph nodes enlarged, shortness of breath, edema face/chest/breasts. Muscle cramps BLE, fingers. History of Any Multi-Drug Resistant Organisms: None Reported Past Surgical History: Tonsillectomy Additional Past Surgical History / Comment(s): D&C. Colonoscopy. Lung Biopsy Past Anesthesia/Blood Transfusion Reactions: Family History of Problems w/ Anes thesia Additional Past Anesthesia/Blood Transfusion Reaction / Comment(s): Reaction to Demerol given with colonoscopy. Mother has problems Past Psychological History: No Psychological Hx Reported Smoking Status: Former smoker Past Alcohol Use History: None Reported Additional Past Alcohol Use History / Comment(s): Smoking since 1969, was 2 ppd, now 1 ppd Past Drug Use History: None Reported - Past Family History Mother Family Medical History: Cancer, Deep Vein Thrombosis (DVT) Additional Family Medical History / Comment(s): kidney cancer Medications and Allergies Home Medications Medication Instructions Recorded Confirmed Type Albuterol Sulfate [Proair Hfa] 2 puff INHALATION RT-Q4H PRN 08/24/19 05/25/22 History Biotin 10,000 mcg PO DAILY 08/24/19 05/25/22 History Cyanocobalamin (Vitamin B-12) 5,000 mcg PO DAILY 08/24/19 05/25/22 History [Vitamin B-12] Fluticasone Propionate [Flonase 1 spr EA NOSTRIL DAILY 08/24/19 05/25/22 History Allergy Relief] Loperamide [Imodium] 2 mg PO QID PRN 08/24/19 05/25/22 History SUMAtriptan succinate [Imitrex] 50 mg PO DAILY PRN 08/24/19 05/25/22 History Simvastatin [Zocor] 20 mg PO HS 08/24/19 05/25/22 History ondansetron HCL [Zofran] 8 mg PO Q8H PRN 09/05/19 05/25/22 History Metoprolol Succinate [Toprol XL] 100 mg PO DAILY 09/07/19 05/25/22 History Folic Acid 1 mg PO DAILY 03/17/21 05/25/22 History Cholecalciferol [Vitamin D3 (25 50 mcg PO DAILY 04/08/22 05/25/22 History Mcg = 1000 Iu)] Prochlorperazine [Compazine] 10 mg PO Q6H PRN 04/08/22 05/25/22 History Topiramate [Topamax] 100 mg PO DAILY 04/08/22 05/25/22 History Nicotine 14Mg/24Hr Patch [Habitrol] 1 patch TRANSDERM DAILY #14 patch 04/10/22 05/25/22 Rx Budesonide/Formoterol Fumarate 1 puff INHALATION RT-BID 05/25/22 05/25/22 History [Symbicort 160-4.5 Mcg Inhaler] Furosemide [Lasix] 40 mg PO DAILY 05/25/22 05/25/22 History Potassium Chloride ER [K-Dur 20] 20 meq PO BID 05/25/22 05/25/22 History Allergies Allergy/AdvReac Type Severity Reaction Status Date / Time meperidine [From Demerol] Allergy Severe Nausea & Verified 05/25/22 10:59 Vomiting codeine Allergy Nausea & Verified 05/25/22 10:59 Vomiting nickel Allergy Rash/Hives Verified 05/25/22 10:59 Physical Exam Vitals: Vital Signs Temp Pulse Resp BP Pulse Ox FiO2 05/27/22 07:15 97.8 F 110 H 18 91/62 98 05/27/22 01:22 97.6 F 116 H 18 93/60 90 L 05/26/22 21:15 100 05/26/22 20:00 98.7 F 116 H 20 89/57 97 05/26/22 11:37 98.0 F 110 H 20 82/59 97 Intake and Output 05/26/22 05/27/22 05/27/22 22:59 06:59 14:59 Intake Total 100 Output Total 139 Balance -39 Intake: Intake, IV Titration 100 Amount ACETAMINOPHEN IV (For NPO 100 ) 1,000 mg In Empty Bag 1 bag @ 400 mls/hr IVPB Q6HR PRN Rx#:[id number] Output: Post Void Residual 139 Other: Voiding Method External Catheter External Catheter # Voids 1 1 Comfortable barely opens eyes Abdomen is tender distended Examination of the heart S1 and S2 Examination of the lungs decreased breath sounds at the bases Examination lower extremity shows trace edema bilaterally SHUTTLER CAR exam shows patient is morning but does not open eyes does not communicate much. Results - Lab Results Most recent lab results Calcium 9.1 mg/dL (8.4-10.2) 05/27/22 06:31 Phosphorus 3.9 mg/dL (2.5-4.5) 05/25/22 09:41 Magnesium 2.8 mg/dL (1.5-2.4) H 05/26/22 04:00 05/27/22 06:31 05/27/22 06:31 Assessment and Plan Assessment: 1. Acute kidney injury, oliguric secondary to hypotension and hypoperfusion. Rule out urine retention 2. Metabolic acidosis associated with acute kidney injury and possible underlying lactic acidosis 3. Right lung cancer with metastasis 4. Hyperkalemia associated with acute kidney injury and metabolic acidosis Plan: The patient was going to be started on IV bicarb with placement of Fritz catheter however the nurse has informed me that family will be proceeding with hospice care.
--- NOTE | 2022-05-27 13:01 | P.PN ---
Subjective Progress Note Date: 05/27/22 Principal diagnosis: metastatic small cell lung carcinoma Pt in bed, restless and moaning at todays visit, less responsive to stimuli today. 15L high flow NC, sat 93%. at bedside. Family meeting was scheduled for today to discuss goals of care and family wishes Objective - Vital Signs Vital signs: Vital Signs Temp 97.8 F 05/27/22 07:15 Pulse 110 H 05/27/22 07:15 Resp 18 05/27/22 07:15 BP 91/62 05/27/22 07:15 Pulse Ox 98 05/27/22 07:15 FiO2 100 05/26/22 21:15 Intake & Output 05/26/22 05/27/22 05/27/22 18:59 06:59 18:59 Intake Total 100 Output Total 139 Balance -39 Intake: Intake, IV Titration 100 Amount ACETAMINOPHEN IV (For NPO 100 ) 1,000 mg In Empty Bag 1 bag @ 400 mls/hr IVPB Q6HR PRN Rx#:[id number] Output: Post Void Residual 139 Other: Voiding Method External Catheter External Catheter External Catheter # Voids 1 1 - Constitutional General appearance: Present: mild distress, obese - Respiratory Details: breathing labored - Cardiovascular Details: skin warm and dry - Peripheral edema leg Peripheral Edema Comment(s): BLE compression bandages applied, legs have decreased swelling since yesterday, +2/+3 pitting edema present - Integumentary Integumentary: Present: normal - Psychiatric Psychiatric Comment(s): Obtunded, no meaningful response to verbal and tactile stimulation - Labs CBC & Chem 7: 05/27/22 06:31 05/27/22 06:31 Labs: Abnormal Lab Results - Last 24 Hours (Table) 05/27/22 05/27/22 Range/Units 06:31 06:31 RBC 3.63 L (3.80-5.40) m/uL MCV 103.4 H (80.0-100.0) fL MCHC 30.6 L (31.0-37.0) g/dL RDW 18.4 H (11.5-15.5) % Potassium 5.7 H (3.5-5.1) mmol/L Chloride 110 H (98-107) mmol/L Carbon Dioxide 14 L (22-30) mmol/L BUN 71 H (7-17) mg/dL Creatinine 3.65 H (0.52-1.04) mg/dL Glucose 122 H (74-99) mg/dL Assessment and Plan (1) Small cell lung carcinoma Status: Chronic Priority: High Code(s): C34.90 - MALIGNANT NEOPLASM OF UNSP PART OF UNSP BRONCHUS OR LUNG SNOMED Code(s): 806725476 Plan: Small cell lung carcinoma: -Pt currently not on active treatment because of copay. Last chemo 04/01/22. -Family meeting today with . Discussed in depth with that despite best efforts her condition continues to deteriorate. Suspect condition is a direct result of progressive cancer-ARF, liver dysfunction, anasarca, also disease progression is suspected on imaging. Additional chemotherpay at this juncture would provide little, if any, benefit with no meaningful prolongation of life or palliation of symptoms. Effects of treatment would likely make patient more uncomfortable. Recommend hospice care. Husbands questions were answered and agreed to plan for hospice. Palliative care/hospice [employer] contacted regarding family's wishes. -Discussed with Case Manger. Requested GIP, anticipate life expectancy less then a few days Attests: I have seen and examined pt, performed H&P, developed impression and plan of care. Discussed with dictator. Agree with documentation, dictated as a scribe. Time with Patient: Greater than 30
[2022-05-27 14:36] LABS: Band Neutrophils % 3 %; Lymphocytes # (M) 0.43 k/uL (1.0-4.8); Monocytes # (M) 0.55 k/uL (0-1.0); Neutrophils % (M) 81 %; Nucleated Red Blood Cells 3 /100 WBC (0-0); Total Cells Counted 100; WBC 6.1 k/uL (3.8-10.6)
--- NOTE | 2022-05-27 18:40 | P.DS ---
Providers Date of admission: 05/25/22 12:28 Expected date of discharge: 05/27/22 Attending physician: Jorge Solares Consults: 05/25/22 13:58 Consult Physician Urgent Consulting Provider: Joshua Turner Consult Reason/Comments: Worsening metastatic lung cancer Do you want consulting provider notified?: Yes 05/25/22 14:00 Consult to Palliative Care Urgent Consulting Provider: Dorothea Tayolr Consult Reason/Comments: Metastatic lung cancer Do you want consulting provider notified?: Yes 05/26/22 15:03 Consult Physician Urgent Consulting Provider: Allegra Norton Consult Reason/Comments: acute renal failure Do you want consulting provider notified?: Yes Primary care physician: Leia Marquez [facility] Course: 71-year-old female came in with complaints of generalized weakness body painspatient was treated for metastatic small cell lung cancer which was diagnosed in 2019 and the patient received chemotherapy and is on active chemo treatment. Patient had a CT of the abdomen and pelvis which showed progression of the disease with increased lymphadenopathy in the paratracheal, carinal and increase the size of the mass in the right upper lung. Patient also has goyo vated liver enzymes appeared to be dehydrated with elevated serum creatinine low sodium. Patient is admitted for further evaluation by oncology, possible palliative care and hydration. 05/26/2022 Patient is seen and evaluated in follow-up this morning and has been maintained on hydration overnight and lung sounds appear wet inpatient extremely dyspneic with low oxygen saturations currently maintained on 15 L nonrebreather will give a dose of Lasix to see if any improvement. Patient has not had any urine output is well and is not eating or drinking. Patient minimally responsive although this morning in pain. Patient also extremely hypotensive. Palliative care consult was placed and discussing possible hospice. Spouses unsure at this time and would like follow-up with oncology to discuss overall prognosis. Adenosis is extremely poor and guarded at this time. Patient has had disease progression with no significant improvement. Patient's kidney functions also worsened and will consult nephrology. Patient is currently afebrile will obtain chest x-ray. 05/27/2022: I assumed care of the patient today. Patient is rather uncomfortable. Groaning at times. Spoke at length with the at the bedside. Hospice was consulted. He will he was patient to be comfortable. Communicated with hospice. GI P to be started today. Discussion and discharge planning more than 35 minutes PHYSICAL EXAMINATION: 37.8, 110, 18, 91/62, 98% on 15 L Uncomfortable. Groaning. Abdomen: Tender Psychiatry: Lethargic just about able to answer questions Assessment: -Generalized weakness secondary to dehydration -Chronic renal failure secondary to intravascular depletion dehydration IV fluids as mentioned above. Baseline creatinine is around 0.5 -Hypervolemic hyponatremia -Elevated liver enzymes probably secondary to metastatic disease -Hyperlipidemia -Metastatic small cell lung cancer in spite of chemotherapy patient appears to have worsening disease on the repeat CAT scans, oncology following -Lactic acidosis secondary to severe intravascular volume depletion and dehydration -DVT prophylaxis: Subcutaneous heparin Disposition: GI P/hospice Plan - Discharge Summary Discharge Rx Participant: No New Discharge Prescriptions: No Action Loperamide [Imodium] 2 mg PO QID PRN PRN Reason: Diarrhea Cyanocobalamin (Vitamin B-12) [Vitamin B-12] 5,000 mcg PO DAILY Biotin 10,000 mcg PO DAILY Simvastatin [Zocor] 20 mg PO HS SUMAtriptan succinate [Imitrex] 50 mg PO DAILY PRN PRN Reason: Migraine Headache Albuterol Sulfate [Proair Hfa] 2 puff INHALATION RT-Q4H PRN PRN Reason: Shortness Of Breath Fluticasone Propionate [Flonase Allergy Relief] 1 spr EA NOSTRIL DAILY ondansetron HCL [Zofran] 8 mg PO Q8H PRN PRN Reason: Nausea Metoprolol Succinate [Toprol XL] 100 mg PO DAILY Folic Acid 1 mg PO DAILY Furosemide [Lasix] 40 mg PO DAILY Topiramate [Topamax] 100 mg PO DAILY Prochlorperazine [Compazine] 10 mg PO Q6H PRN PRN Reason: Nausea Cholecalciferol [Vitamin D3 (25 Mcg = 1000 Iu)] 50 mcg PO DAILY Nicotine 14Mg/24Hr Patch [Habitrol] 1 patch TRANSDERM DAILY #14 patch Potassium Chloride ER [K-Dur 20] 20 meq PO BID Budesonide/Formoterol Fumarate [Symbicort 160-4.5 Mcg Inhaler] 1 puff INHALATION RT-BID Discharge Medication List Albuterol Sulfate [Proair Hfa] 2 puff INHALATION RT-Q4H PRN 08/24/19 [History] Biotin 10,000 mcg PO DAILY 08/24/19 [History] Cyanocobalamin (Vitamin B-12) [Vitamin B-12] 5,000 mcg PO DAILY 08/24/19 [History] Fluticasone Propionate [Flonase Allergy Relief] 1 spr EA NOSTRIL DAILY 08/24/19 [History] Loperamide [Imodium] 2 mg PO QID PRN 08/24/19 [History] SUMAtriptan succinate [Imitrex] 50 mg PO DAILY PRN 08/24/19 [History] Simvastatin [Zocor] 20 mg PO HS 08/24/19 [History] ondansetron HCL [Zofran] 8 mg PO Q8H PRN 09/05/19 [History] Metoprolol Succinate [Toprol XL] 100 mg PO DAILY 09/07/19 [History] Folic Acid 1 mg PO DAILY 03/17/21 [History] Cholecalciferol [Vitamin D3 (25 Mcg = 1000 Iu)] 50 mcg PO DAILY 04/08/22 [History] Prochlorperazine [Compazine] 10 mg PO Q6H PRN 04/08/22 [History] Topiramate [Topamax] 100 mg PO DAILY 04/08/22 [History] Nicotine 14Mg/24Hr Patch [Habitrol] 1 patch TRANSDERM DAILY #14 patch 04/10/22 [Rx] Budesonide/Formoterol Fumarate [Symbicort 160-4.5 Mcg Inhaler] 1 puff INHALATION RT-BID 05/25/22 [History] Furosemide [Lasix] 40 mg PO DAILY 05/25/22 [History] Potassium Chloride ER [K-Dur 20] 20 meq PO BID 05/25/22 [History] Follow up Appointment(s)/Referral(s): Leia Marquez MD [Primary Care Provider] - 1-2 days Discharge Disposition: DISCH [facility]
== END 2022-05-27 11:30 | disposition hospice, inpatient (51) | DRG 641 ==
LOC: EC 09:21 → 5NMEDONC 12:28
PROVIDERS: ADMIT Hospitalist; ATTEND Hospitalist
DX: E86.0 Dehydration (principal); N17.9 Acute kidney failure, unspecified; C79.51 Secondary malignant neoplasm of bone; I87.1 Compression of vein; C79.31 Secondary malignant neoplasm of brain; E87.20 Acidosis, unspecified; R16.0 Hepatomegaly, not elsewhere classified; F03.90 Unspecified dementia, unspecified severity, without behavioral disturbance, psychotic disturbance, mood disturbance, and anxiety; K76.89 Other specified diseases of liver; G40.909 Epilepsy, unspecified, not intractable, without status epilepticus; J44.9 Chronic obstructive pulmonary disease, unspecified; N18.9 Chronic kidney disease, unspecified; I12.9 Hypertensive chronic kidney disease with stage 1 through stage 4 chronic kidney disease, or unspecified chronic kidney disease; Z51.5 Encounter for palliative care; Z66 Do not resuscitate; H91.90 Unspecified hearing loss, unspecified ear; E78.5 Hyperlipidemia, unspecified; E87.1 Hypo-osmolality and hyponatremia; R00.0 Tachycardia, unspecified; E87.70 Fluid overload, unspecified; R32 Unspecified urinary incontinence; R59.0 Localized enlarged lymph nodes; E87.5 Hyperkalemia; Z85.118 Personal history of other malignant neoplasm of bronchus and lung; Z92.21 Personal history of antineoplastic chemotherapy; Z79.899 Other long term (current) drug therapy; Z79.51 Long term (current) use of inhaled steroids; Z88.5 Allergy status to narcotic agent; Z91.048 Other nonmedicinal substance allergy status; Z88.8 Allergy status to other drugs, medicaments and biological substances; Z87.891 Personal history of nicotine dependence; Z80.51 Family history of malignant neoplasm of kidney; Z92.3 Personal history of irradiation
CPT/HCPCS: 36415; 71045; 71250; 74176; 80048; 80053; 83605; 83735; 84100; 85025; 85027; 85610; 85730; 93005; 94640; 96365; 96375; 99291

== ENCOUNTER 2022-05-27 10:50 | Inpatient (IN) | payer MEDICAID ==
[2022-05-27] MEDS ORDERED: MORPHINE SULFATE 2 MG/ML SYRINGE IV PRN (10:53)
[2022-05-27] MEDS ORDERED: LORazepam 2 MG/ML INJ IV PRN (10:53)
[2022-05-27] MEDS ORDERED: GLYCOPYRROLATE 0.2 MG/ML 2 ML VIAL IVP PRN (10:53)
[2022-05-27] MEDS ORDERED: ATROPINE OPHTH SOLN 1% 5ML BTL SUBLINGUAL PRN (10:53)
[2022-05-27] MEDS ORDERED: ACETAMINOPHEN SUPPOSITORY 650 MG SUPP RECTAL PRN (10:53)
[2022-05-27] MEDS ORDERED: ONDANSETRON 4 MG/2 ML VIAL IVP PRN (10:53)
[2022-05-27] MEDS ORDERED: MORPHINE SULFATE (100 MG/2 ML) 100 MG in SODIUM CHLORIDE 0.9% 100 ML IV SCH (11:00)
[2022-05-27] MEDS ORDERED: SCOPOLAMINE 1 MG/72 HR PATCH TRANSDERM SCH (11:00)
[2022-05-27 22:54] VITALS: RESP 14
--- NOTE | 2022-05-28 16:46 | P.DS ---
Providers Date of admission: 05/27/22 11:32 Expected date of discharge: 05/28/22 Attending physician: Jorge Solares Primary care physician: Leia Marquez [facility] Course: Patient is admitted to [facility] for comfort measures. Patient this morning. Cause of : Small cell lung cancer. Plan - Discharge Summary New Discharge Prescriptions: No Action Loperamide [Imodium] 2 mg PO QID PRN PRN Reason: Diarrhea Cyanocobalamin (Vitamin B-12) [Vitamin B-12] 5,000 mcg PO DAILY Biotin 10,000 mcg PO DAILY Simvastatin [Zocor] 20 mg PO HS SUMAtriptan succinate [Imitrex] 50 mg PO DAILY PRN PRN Reason: Migraine Headache Albuterol Sulfate [Proair Hfa] 2 puff INHALATION RT-Q4H PRN PRN Reason: Shortness Of Breath Fluticasone Propionate [Flonase Allergy Relief] 1 spr EA NOSTRIL DAILY ondansetron HCL [Zofran] 8 mg PO Q8H PRN PRN Reason: Nausea Metoprolol Succinate [Toprol XL] 100 mg PO DAILY Folic Acid 1 mg PO DAILY Furosemide [Lasix] 40 mg PO DAILY Topiramate [Topamax] 100 mg PO DAILY Prochlorperazine [Compazine] 10 mg PO Q6H PRN PRN Reason: Nausea Cholecalciferol [Vitamin D3 (25 Mcg = 1000 Iu)] 50 mcg PO DAILY Nicotine 14Mg/24Hr Patch [Habitrol] 1 patch TRANSDERM DAILY #14 patch Potassium Chloride ER [K-Dur 20] 20 meq PO BID Budesonide/Formoterol Fumarate [Symbicort 160-4.5 Mcg Inhaler] 1 puff INHALATION RT-BID Discharge Medication List Albuterol Sulfate [Proair Hfa] 2 puff INHALATION RT-Q4H PRN 08/24/19 [History] Biotin 10,000 mcg PO DAILY 08/24/19 [History] Cyanocobalamin (Vitamin B-12) [Vitamin B-12] 5,000 mcg PO DAILY 08/24/19 [History] Fluticasone Propionate [Flonase Allergy Relief] 1 spr EA NOSTRIL DAILY 08/24/19 [History] Loperamide [Imodium] 2 mg PO QID PRN 08/24/19 [History] SUMAtriptan succinate [Imitrex] 50 mg PO DAILY PRN 08/24/19 [History] Simvastatin [Zocor] 20 mg PO HS 08/24/19 [History] ondansetron HCL [Zofran] 8 mg PO Q8H PRN 09/05/19 [History] Metoprolol Succinate [Toprol XL] 100 mg PO DAILY 09/07/19 [History] Folic Acid 1 mg PO DAILY 03/17/21 [History] Cholecalciferol [Vitamin D3 (25 Mcg = 1000 Iu)] 50 mcg PO DAILY 04/08/22 [History] Prochlorperazine [Compazine] 10 mg PO Q6H PRN 04/08/22 [History] Topiramate [Topamax] 100 mg PO DAILY 04/08/22 [History] Nicotine 14Mg/24Hr Patch [Habitrol] 1 patch TRANSDERM DAILY #14 patch 04/10/22 [Rx] Budesonide/Formoterol Fumarate [Symbicort 160-4.5 Mcg Inhaler] 1 puff INHALATION RT-BID 05/25/22 [History] Furosemide [Lasix] 40 mg PO DAILY 05/25/22 [History] Potassium Chloride ER [K-Dur 20] 20 meq PO BID 05/25/22 [History] Discharge Disposition: - Preliminary Cause of Preliminary Cause of : Small cell lung cancer
== END 2022-05-28 02:00 | disposition expired | DRG 951 ==
LOC: 5NMEDONC 11:32
PROVIDERS: ADMIT Hospitalist; ATTEND Hospitalist
DX: Z51.5 Encounter for palliative care (principal); C34.90 Malignant neoplasm of unspecified part of unspecified bronchus or lung; C77.1 Secondary and unspecified malignant neoplasm of intrathoracic lymph nodes; E87.1 Hypo-osmolality and hyponatremia; E87.20 Acidosis, unspecified; C78.7 Secondary malignant neoplasm of liver and intrahepatic bile duct; R74.01 Elevation of levels of liver transaminase levels; E86.1 Hypovolemia; R53.1 Weakness; E86.0 Dehydration; N18.9 Chronic kidney disease, unspecified; E86.9 Volume depletion, unspecified; J44.9 Chronic obstructive pulmonary disease, unspecified; H91.90 Unspecified hearing loss, unspecified ear; G43.909 Migraine, unspecified, not intractable, without status migrainosus; Z87.891 Personal history of nicotine dependence; Z88.8 Allergy status to other drugs, medicaments and biological substances; Z88.5 Allergy status to narcotic agent; Z91.048 Other nonmedicinal substance allergy status